=== PATIENT | female | born 1955 | race Caucasian/White ===

== ENCOUNTER → 2021-09-30 | Outpatient (CLI) | payer MEDICARE ==
--- NOTE | 2021-10-01 07:35 | CA ---
Transthoracic Echo Report Name: Alessandra Nieves Age: 65 Gender: F : 1955 Exam Date: 09/30/2021 11:57 Exam Location: [place] [facility] Ht (in): 69 Wt (lb): 200 Ordering Physician: Miranda Pederson MD Attending/Referring Phys: Kwabena Peralta Equipment Operator [employer] Fay Ambrocio RDCS Procedure CPT: Indications: R01.1 cardaic murmur Cardiac Hx: Technical Quality: Good Contrast 1: N/A Total Dose (mL): Contrast 2: Total Dose (mL): MEASUREMENTS (Male / Female) Normal Values 2D ECHO LV Diastolic Diameter PLAX 4.4 cm 4.2 - 5.9 / 3.9 - 5.3 cm LV Systolic Diameter PLAX 3.4 cm IVS Diastolic Thickness 1.5 cm 0.6 - 1.0 / 0.6 - 0.9 cm LVPW Diastolic Thickness 1.5 cm 0.6 - 1.0 / 0.6 - 0.9 cm LV Relative Wall Thickness 0.7 RV Internal Dim ED PLAX 3.2 cm LA Systolic Diameter LX 4.5 cm 3.0 - 4.0 / 2.7 - 3.8 cm LA Volume 76.6 cm??? 18 - 58 / 22 - 52 cm??? M-MODE Aortic Root Diameter MM 3.0 cm LA Systolic Diameter MM 4.1 cm LA Ao Ratio MM 1.4 MV E Point Septal Separation 0.5 cm AV Cusp Separation MM 1.5 cm DOPPLER MV Peak Velocity 152.3 cm/s MV Peak Gradient 9.3 mmHg MV Mean Velocity 53.9 cm/s MV Mean Gradient 1.8 mmHg MV Velocity Time Integral 36.3 cm MV Area PHT 4.3 cm??? Mitral E Point Velocity 113.6 cm/s Mitral A Point Velocity 100.0 cm/s Mitral E to A Ratio 1.1 MV Deceleration Time 175.9 ms MV E' Velocity 5.6 cm/s Mitral E to MV E' Ratio 20.1 TR Peak Velocity 311.3 cm/s TR Peak Gradient 38.8 mmHg Right Ventricular Systolic Press 42.0 mmHg FINDINGS Left Ventricle Moderately increased septal wall thickness.left ventricular ejection fraction is estimated at 50-55 %. Left ventricular cavity size normal. Right Ventricle Normal right ventricular size and function. Moderate pulmonary hypertension. Right Atrium Normal right atrial size. Left Atrium Moderately increased left atrial diameter. Severely increased left atrial volume. Mildly increased left atrial area. Mitral Valve Moderate mitral annular calcification of posterior leaflet. Aortic Valve Aortic valve not well visualized. Tricuspid Valve Mild tricuspid regurgitation. Pulmonic Valve Pulmonic valve not well visualized. Pericardium Normal pericardium. Aorta Normal size aortic root and proximal ascending aorta. CONCLUSIONS Mild left ventricle hypertrophy with ejection fraction of 55% Previewed by: Dr. Khai Molina MD (Electronically Signed) Final Date: 01 Oct 2021 07:35
== END | disposition home or self-care (01) ==
LOC: RADECHMAIN 11:37
PROVIDERS: ATTEND Family Medicine
DX: I51.7 Cardiomegaly (principal)
CPT/HCPCS: 93306

== ENCOUNTER → 2021-11-20 | Outpatient (CLI) | payer MEDICARE ==
--- NOTE | 2021-11-21 16:45 | MM ---
Reason for Exam: Screening (asymptomatic). Last mammogram was performed 13 year(s) and 1 month(s) ago. Patient History: Menarche at age 11. First Full-Term at age 25. Postmenopausal. Patient has history of breast feeding. Risk Values: Maddison 5 year model risk: 1.9%. NCI Lifetime model risk: 6.7%. Prior Study Comparison: 10/06/2008 Bilateral Screening Mammogram, [facility]. Tissue Density: There are scattered fibroglandular densities. Findings: Analyzed By CAD. There is a small nodule within the posterior mid middle position left breast. Short-term follow-up is recommended. No suspicious groups of microcalcifications, spiculated or lobular masses, architectural distortion or other secondary signs of malignancy are mammographically apparent. Overall Assessment: Probably benign, BI-RAD 3 Management: Diagnostic Mammogram of the left breast in 6 months. A negative mammogram report should not preclude additional follow up of suspicious palpable abnormalities. Patient should continue monthly self breast exam. A clinical breast exam by your physician is recommended on an annual basis and results should be correlated with mammographic findings. Electronically signed and approved by: Raul Willis D.O. Radiologis
== END | disposition home or self-care (01) ==
LOC: RADMAMWWP 12:58
PROVIDERS: ATTEND Family Medicine
DX: Z12.31 Encounter for screening mammogram for malignant neoplasm of breast (principal)
CPT/HCPCS: 77063; 77067

== ENCOUNTER → 2022-05-28 | Outpatient (CLI) | payer MEDICARE ==
--- NOTE | 2022-05-28 09:21 | MM ---
Reason for Exam: Follow-up at short interval from prior study. Last screening mammogram was performed 6 month(s) ago. Patient History: Menarche at age 11. First Full-Term at age 25. Postmenopausal. Patient has history of breast feeding. Risk Values: Maddison 5 year model risk: 1.9%. NCI Lifetime model risk: 6.4%. Prior Study Comparison: 10/06/2008 Bilateral Screening Mammogram, [facility]. 11/20/2021 Bilateral MG 3D screening mammo w/cad, [facility]. Tissue Density: Left: There are scattered fibroglandular densities. Findings: Analyzed By CAD. Focal asymmetry left breast 11-12 cm from nipple measuring 5 mm. This is unchanged from prior. New suspicious masses, calcifications or distortions. Overall Assessment: Incomplete: need additional imaging evaluation, BI-RAD 0 Management: Diagnostic Breast Ultrasound of the left breast. A clinical breast exam by your physician is recommended on an annual basis and results should be correlated with mammographic findings. This exam should not preclude additional follow-up of suspicious palpable abnormalities. Results were given to the patient verbally at the time of exam. Electronically signed and approved by: Yaron Mckeon DO
--- NOTE | 2022-05-28 09:58 | USB ---
Reason for Exam: Additional evaluation requested from prior study. Patient History: Menarche at age 11. First Full-Term at age 25. Postmenopausal. Patient has history of breast feeding. Risk Values: Maddison 5 year model risk: 1.9%. NCI Lifetime model risk: 6.4%. Technique: Method: Targeted. Prior Study Comparison: 10/06/2008 Bilateral Screening Mammogram, [facility]. 11/20/2021 Bilateral MG 3D screening mammo w/cad, [facility]. Findings: The upper section of the breast of the left breast was scanned. Left upper half of the breast. No ultrasound imaging to correlate with abnormality on mammography. No suspicious masses or organizing fluid collections. Overall Assessment: Probably benign, BI-RAD 3 Management: Screening Mammogram of both breasts in 6 months. Attention on follow-up regularly scheduled yearly screening mammogram in 6 months. A clinical breast exam by your physician is recommended on an annual basis and results should be correlated with mammographic findings. This exam should not preclude additional follow-up of suspicious palpable abnormalities. Results were given to the patient verbally at the time of exam. Electronically signed and approved by: Yaron Mckeon DO
== END | disposition home or self-care (01) ==
LOC: RADMAMWWP 08:55
PROVIDERS: ATTEND Family Medicine
DX: R92.8 Other abnormal and inconclusive findings on diagnostic imaging of breast (principal); Z78.0 Asymptomatic menopausal state
CPT/HCPCS: 77065; 76642; G0279; 77061

== ENCOUNTER → 2022-11-21 | Outpatient (CLI) | payer MEDICARE ==
--- NOTE | 2022-11-24 09:15 | MM ---
Reason for Exam: Screening (asymptomatic). Last screening mammogram was performed 12 month(s) ago. Patient History: Menarche at age 11. First Full-Term at age 25. Postmenopausal. Patient has history of breast feeding. Risk Values: Maddison 5 year model risk: 1.9%. NCI Lifetime model risk: 6.4%. Prior Study Comparison: 10/06/2008 Bilateral Screening Mammogram, [facility]. 11/20/2021 Bilateral MG 3D screening mammo w/cad, [facility]. 05/28/2022 Left MG 3D diag mammo w/cad LT, [facility]. Tissue Density: There are scattered fibroglandular densities. Findings: Analyzed By CAD. Pattern appears symmetrical and stable. No significant interval change is evident. Chronic nodularity within the posterior left breast is smaller than comparison. No suspicious groups of microcalcifications, spiculated or lobular masses, architectural distortion or other secondary signs of malignancy are mammographically apparent. Overall Assessment: Benign, BI-RAD 2 Management: Screening Mammogram of both breasts in 1 year. A negative mammogram report should not preclude additional follow up of suspicious palpable abnormalities. Patient should continue monthly self breast exam. A clinical breast exam by your physician is recommended on an annual basis and results should be correlated with mammographic findings. Electronically signed and approved by: Raul Willis D.O. Radiologis
== END | disposition home or self-care (01) ==
LOC: RADMAMWWP 09:00
PROVIDERS: ATTEND Family Medicine
DX: Z12.31 Encounter for screening mammogram for malignant neoplasm of breast (principal); Z78.0 Asymptomatic menopausal state
CPT/HCPCS: 77063; 77067

== ENCOUNTER → 2022-11-21 | Outpatient (CLI) | payer MEDICARE ==
--- NOTE | 2022-11-21 10:54 | CTL ---
EXAMINATION TYPE: CT Low Dose Lung DATE OF EXAM ORDERED: 11/21/2022 HISTORY: . Lung cancer screening CT DLP: 87.[address] CTDI: 2.3 mGy Automated exposure control for dose reduction was used. SCREENING VISIT: COMPARISON: TECHNIQUE: Low dose computed tomography scan was performed through the chest at 1 mm thick sections a nd reconstructed images in multiple planes at 1 mm and [address] DIAGNOSTIC QUALITY: Satisfactory FINDINGS: As a fat-containing abdominal wall hernia. There is hypertrophic and multilevel severe degenerative d isc disease of the spine. There is a large hiatal hernia. The heart is the upper limits of normal in size but there is dense coronary artery calcification. Richard cification near the aortic valve is seen. Aorta of normal caliber with mild atherosclerotic changes. There is no evidence of focal pneumonia, pleural effusion or pneumothorax. There is some biapical ple ural thickening. There is a nodular contour to the anterior margin of the mid left kidney only partially included fiel d-of-view. Mild changes of COPD. There is a 6 mm subpleural nodule left upper lobe. Linear density along the medial margin of the righ t lung apex likely related to scarring. Allograft assessment for adenopathy is limited by noncontrast technique. There is a prominent pretracheal lymph node measuring short axis VIII mm. No lymph nodes measuring greater than 1 cm in short axis identified. There is a 5 mm perivertebral lymph node right upper lobe axial image 92 There is a 4 mm left upper lobe nodule image 33 IMPRESSION: 1. There multiple small pulmonary nodules with the largest measuring 6 mm subpleural nodule left upp er lobe. Probably benign finding. Six-month follow-up recommended. 2. Dense coronary artery calcification. 3. Large hiatal hernia. 4. There is a nodular contour to the anterior margin of the left kidney. Recommend ultrasound of the left kidney to exclude mass. CT LUNG RAD AND CT CHEST RECOMMENDATION: Lung-Rad 3 Probably Benign: 6 month follow-up LDCT. S Modifier (other clinically significant findings): A Document Only message has been documented for Miranda Pederson MD in the [employer] Critical Result system on 11/21/2022 10:51 AM, Message ID [id number].
== END | disposition home or self-care (01) ==
LOC: RADCTMAIN 09:24
PROVIDERS: ATTEND Family Medicine
DX: Z12.2 Encounter for screening for malignant neoplasm of respiratory organs (principal); I25.10 Atherosclerotic heart disease of native coronary artery without angina pectoris; K44.9 Diaphragmatic hernia without obstruction or gangrene; R91.8 Other nonspecific abnormal finding of lung field; F17.210 Nicotine dependence, cigarettes, uncomplicated
CPT/HCPCS: 71271

== ENCOUNTER 2022-12-30 09:29 | Inpatient (IN) | payer MEDICARE ==
--- NOTE | 2022-12-30 09:47 | ED ---
Recheck HPI - General Chief Complaint: Recheck/Abnormal Lab/Rx Stated Complaint: kidney failure,sent by pcp Time Seen by Provider: 12/30/22 09:35 Source: patient, RN notes reviewed Mode of arrival: ambulatory Limitations: no limitations - History of Present Illness Initial Comments: This is a 67 year old female who presents to the emergency department for abnormal blood work. States that her PCP sent her in for poor kidney function demonstrated on her blood work obtained yesterday. She has had poor renal function over the last couple of months, and states that she has had ongoing diarrhea for the last 3 months, which is what caused her to go into kidney failure initially. States that she's had multiple tests done and they cannot figure out why she continues to have diarrhea or why her kidneys continue to fail. She is taking Lomotil, which she states has helped. She used to have diarrhea around 15-16 times a day and is now having it about 6 times a day when taking the Lomotil. Reports intermittent left flank pain over the last couple of weeks, but otherwise denies any concerns or complaints. Denies any fevers, chills, sore throat, cough, dyspnea, chest pain, palpitations, abdominal pain, nausea, vomiting, or headaches. MD Complaint: abnormal lab - Related Data Home Medications Medication Instructions Recorded Confirmed Albuterol Inhaler [Ventolin Hfa 1 - 2 puff INHALATION RT-Q6H PRN 12/11/22 12/30/22 Inhaler] Metoprolol Tartrate [Lopressor] 50 mg PO DAILY 12/11/22 12/30/22 Pantoprazole [Protonix] 40 - 80 mg PO DAILY 12/11/22 12/30/22 Cholecalciferol [Vitamin D3 (25 25 mcg PO DAILY 12/30/22 12/30/22 Mcg = 1000 Iu)] Diphenox-Atrop 2.5-0.025 mg 2 tab PO Q6HR PRN 12/30/22 12/30/22 [Lomotil] Mv-Min/Folic/Vit K/Lut/Pmwi057 1 tab PO DAILY 12/30/22 12/30/22 [Alive Women's 50 Plus Tablet] Rosuvastatin Calcium 5 mg PO HS 12/30/22 12/30/22 Ubidecarenone [Co Q-10] 300 mg PO DAILY 12/30/22 12/30/22 Previous Rx's Medication Instructions Recorded Potassium Chloride [K-Tab ER] 20 meq PO DAILY 30 Days #30 tab 12/19/22 lisinopriL [Zestril] 40 mg PO DAILY 30 Days #60 tab 12/19/22 Allergies Allergy/AdvReac Type Severity Reaction Status Date / Time Penicillins Allergy Swelling Verified 12/30/22 12:21 Review of Systems ROS Statement: Those systems with pertinent positive or pertinent negative responses have been documented in the HPI. ROS Other: All systems not noted in ROS Statement are negative. Past Medical History Past Medical History: Hyperlipidemia, Hypertension, Renal Disease History of Any Multi-Drug Resistant Organisms: None Reported Past Surgical History: Section, Hernia Repair Past Anesthesia/Blood Transfusion Reactions: No Reported Reaction Past Psychological History: No Psychological Hx Reported Smoking Status: Current every day smoker Past Alcohol Use History: None Reported Past Drug Use History: None Reported General Exam Limitations: no limitations General appearance: alert, in no apparent distress Head exam: Present: atraumatic, normocephalic, normal inspection Respiratory exam: Present: normal lung sounds bilaterally. Absent: respiratory distress, wheezes, rales, rhonchi, stridor Cardiovascular Exam: Present: regular rate, normal rhythm, normal heart sounds. Absent: systolic murmur, diastolic murmur, rubs, gallop, clicks GI/Abdominal exam: Present: soft, normal bowel sounds. Absent: distended, tenderness, guarding, rebound, rigid Back exam: Absent: CVA tenderness (R), CVA tenderness (L) Neurological exam: Present: alert, oriented X3, CN II-XII intact Psychiatric exam: Present: normal affect, normal mood Skin exam: Present: warm, dry, intact, normal color. Absent: rash Course Vital Signs 12/30/22 12/30/22 12/30/22 09:31 11:30 12:23 Temperature 98 F Pulse Rate 79 51 L 52 L Respiratory 16 18 18 Rate Blood Pressure 90/57 91/49 95/68 O2 Sat by Pulse 98 98 100 Oximetry 12/30/22 13:06 Temperature Pulse Rate 54 L Respiratory 18 Rate Blood Pressure 93/50 O2 Sat by Pulse 97 Oximetry Medical Decision Making - Medical Decision Making This is a 67-year-old female who presents to the emergency department per the instruction of her primary care provider for poor renal function demonstrated on recent blood work. Was pt. sent in by a medical professional or institution? @ -Yes, her PCP Did you speak to anyone other than the patient for history? @ -No Did you review nursing and triage notes? @ -Yes, and I agree, it is accurate with regards to the patient's symptoms. Were old charts reviewed? @ -No Differential Diagnosis? @ -Differential Renal Failure: Hypovolemia, hypotension, renal artery disease, tubular disease, autoimmune disease, this is not meant to be an all-inclusive list. EKG interpreted by me (3pts min.)? @ -EKG interpreted by me demonstrating the following: Sinus bradycardia. Ventricular rate 49 beats per minute, FL interval 158 ms, QRS duration 98 ms, QTC 381 ms. X-rays interpreted by me (1pt min.)? @ -Chest x-ray obtained, my interpretation identifies no localized consolidations or infiltrates. CT interpreted by me (1pt min.)? @ -Not obtained U/S interpreted by me (1pt. min.)? @ -Not obtained What testing was considered but not performed? (CT, X-rays, U/S, labs)? Why? @ -None What meds were considered but not given? Why? @ -None Did you discuss the management of the patient with other professionals? @ -Yes, Dr. Beckett, who accepts the patient for admission. Did you reconcile home meds? @ -No Was smoking cessation discussed for >3mins.? @ -No Was critical care preformed (if so, how long)? @ -No Were there social determinants of health that impacted care today? How? (Homelessness, low income, unemployed, alcoholism, drug addiction, transportation, low edu. Level, literacy, decrease access to med. care, mcc, rehab)? @ -No Was there de-escalation of care discussed even if they declined? (Discuss DNR or withdrawal of care, Hospice)? @ -No What co-morbidities impacted this encounter? (DM, HTN, Smoking, COPD, CAD, Cancer, CVA, Hep., AIDS, mental health diagnosis, sleep apnea, morbid obesity)? @ -HLD, HTN, renal disease Was patient admitted / discharged? @ -Admitted. Lab work obtained revealing poor renal function that has worsened even when compared with one day ago. Magnesium is also critically low at 0.9. Chest x-ray obtained revealing no acute process. Urinalysis negative for signs of infection. Patient did remain fairly hypotensive in the emergency department, with blood pressures ranging from 85 to 95 systolically for most of the visit. She was subsequently given a liter bolus of IV fluids. 4g of magne sium oxide administered for the hypomagnesemia. She did take her medication for hypertension this morning. She does not check her BP at home. Patient admitted to medicine for hypomagnesemia and hypotension. Nephrology listed as consult. Undiagnosed new problem with uncertain prognosis? @ -None Drug Therapy requiring intensive monitoring for toxicity (Heparin, Nitro, Insulin, Cardizem)? @ -None Were any procedures done? @ -None Diagnosis/symptom? @ -Hypomagnesemia, hypotension Acute, or Chronic, or Acute on Chronic? @ -Acute Uncomplicated (without systemic symptoms) or Complicated (systemic symptoms)? @ -Complicated Side effects of treatment? @ -None Exacerbation, Progression, or Severe Exacerbation] @ -Not applicable Poses a threat to life or bodily function? @ -Yes This case was discussed in detail with the attending ED physician, Dr. Gao. Presentation, findings, and treatment plan discussed in detail as well. - Lab Data Result diagrams: 12/30/22 10:38 12/30/22 10:38 Lab Results 12/30/22 12/30/22 12/30/22 Range/Units 10:38 10:38 10:38 WBC 7.0 (3.8-10.6) k/uL RBC 4.25 (3.80-5.40) m/uL Hgb 13.8 (11.4-16.0) gm/dL Hct 42.0 (34.0-46.0) % MCV 98.7 (80.0-100.0) fL MCH 32.5 (25.0-35.0) pg MCHC 32.9 (31.0-37.0) g/dL RDW 12.5 (11.5-15.5) % Plt Count 273 (150-450) k/uL MPV 9.5 Neutrophils % 51 % Lymphocytes % 38 % Monocytes % 7 % Eosinophils % 3 % Basophils % 0 % Neutrophils # 3.5 (1.3-7.7) k/uL Lymphocytes # 2.7 (1.0-4.8) k/uL Monocytes # 0.5 (0-1.0) k/uL Eosinophils # 0.2 (0-0.7) k/uL Basophils # 0.0 (0-0.2) k/uL Sodium 136 L (137-145) mmol/L Potassium 4.8 (3.5-5.1) mmol/L Chloride 104 (98-107) mmol/L Carbon Dioxide 20 L (22-30) mmol/L Anion Gap 12 mmol/L BUN 43 H (7-17) mg/dL Creatinine 3.92 H (0.52-1.04) mg/dL Est GFR (CKD-EPI)AfAm 13 (>60 ml/min/1.73 sqM) Est GFR (CKD-EPI)NonAf 11 (>60 ml/min/1.73 sqM) Glucose 95 (74-99) mg/dL Calcium 9.4 (8.4-10.2) mg/dL Phosphorus 5.7 H (2.5-4.5) mg/dL Magnesium 0.9 L* (1.6-2.3) mg/dL Total Bilirubin 0.7 (0.2-1.3) mg/dL AST 35 (14-36) U/L ALT 50 H (4-34) U/L Alkaline Phosphatase 58 (38-126) U/L Total Protein 7.3 (6.3-8.2) g/dL Albumin 3.9 (3.5-5.0) g/dL Urine Color Yellow Urine Appearance Clear (Clear) Urine pH 5.0 (5.0-8.0) Ur Specific [place] 1.011 (1.001-1.035) Urine Protein Trace H (Negative) Urine Glucose (UA) Negative (Negative) Urine Ketones Negative (Negative) Urine Blood Negative (Negative) Urine Nitrite Negative (Negative) Urine Bilirubin Negative (Negative) Urine Urobilinogen <2.0 (<2.0) mg/dL Ur Leukocyte Esterase Negative (Negative) - Radiology Data Radiology results: report reviewed, image reviewed Disposition Clinical Impression: Hypomagnesemia, Hypotension Disposition: ADMITTED IP TO THIS HOSP
[2022-12-30 10:59] LABS: Basophils % (A) 0 %; Eosinophils # (A) 0.2 k/uL (0-0.7); Eosinophils % (A) 3 %; HGB 13.8 gm/dL (11.4-16.0); Lymphocytes # (A) 2.7 k/uL (1.0-4.8); Lymphocytes % (A) 38 %; MCH 32.5 pg (25.0-35.0); MCHC 32.9 g/dL (31.0-37.0); MCV 98.7 fL (80.0-100.0); Mean Platelet Volume 9.5; Monocytes # (A) 0.5 k/uL (0-1.0); Monocytes % (A) 7 %; Neutrophils # (A) 3.5 k/uL (1.3-7.7); Neutrophils % (A) 51 %; Platelet Count 273 k/uL (150-450); RBC 4.25 m/uL (3.80-5.40); RDW 12.5 % (11.5-15.5)
[2022-12-30 11:22] LABS: ALT 50 U/L (4-34); African American GFR (CKD) 13 (>60 ml/min/1.73 sqM); Anion Gap 12 mmol/L; Blood Urea Nitrogen 43 mg/dL (7-17); Calcium 9.4 mg/dL (8.4-10.2); Carbon Dioxide 20 mmol/L (22-30); Chloride 104 mmol/L (98-107); Glucose 95 mg/dL (74-99); Non-African American GFR(CKD) 11 (>60 ml/min/1.73 sqM); Sodium 136 mmol/L (137-145); Total Bilirubin 0.7 mg/dL (0.2-1.3)
[2022-12-30] MEDS ORDERED: SODIUM CHLORIDE 0.9% 1,000 ML IV STA (11:23)
[2022-12-30 11:29] LABS: Magnesium 0.9 mg/dL (1.6-2.3); Potassium 4.8 mmol/L (3.5-5.1)
[2022-12-30 11:30] LABS: AST 35 U/L (14-36); Albumin 3.9 g/dL (3.5-5.0); Alkaline Phosphatase 58 U/L (38-126); Phosphorus 5.7 mg/dL (2.5-4.5); Total Protein 7.3 g/dL (6.3-8.2)
[2022-12-30] MEDS: MAGNESIUM SULFATE-D5W PMX 1 GM in DEXTROSE/WATER 1 100ML.BAG IVPB SCH ×4 (11:42→16:17)
[2022-12-30] MEDS ORDERED: ACETAMINOPHEN TAB 325 MG TAB PO PRN (12:00)
[2022-12-30] MEDS ORDERED: NALOXONE 0.4 MG/ML 1 ML VIAL IV PRN (12:00)
[2022-12-30] MEDS ORDERED: ONDANSETRON 4 MG/2 ML VIAL IVP PRN (12:00)
[2022-12-30] MEDS ORDERED: HYDROcodone/APAP 5-325MG 1 EACH TAB PO PRN (12:00)
--- NOTE | 2022-12-30 12:10 | XR ---
EXAMINATION TYPE: XR chest 2V DATE OF EXAM: 12/30/2022 COMPARISON: 12/11/2022 HISTORY: 67-year-old female weakness and hypotension TECHNIQUE: PA and lateral views FINDINGS: Heart normal size. Aorta and pulmonary vasculature within normal limits. Mild hyperinflation. There i s a small hiatal hernia. Surgical clips upper abdomen. No consolidation or pleural effusion. IMPRESSION: Mild hyperinflation may relate to depth of inspiration or underlying emphysema. Small hiatal hernia. No acute process seen.
[2022-12-30 13:20] LABS: Appearance,Urine Clear (Clear); Bilirubin,Urine Negative (Negative); Blood,Urine Negative (Negative); Color,Urine Yellow; Glucose,Urine (UA) Negative (Negative); Ketones,Urine Negative (Negative); Leukocyte Esterase,Urine Negative (Negative); Nitrite,Urine Negative (Negative); Protein,Urine Trace (Negative); Specific Gravity,Urine 1.011 (1.001-1.035); Urobilinogen,Urine <2.0 mg/dL (<2.0)
[2022-12-30] MEDS: NICOTINE 21MG/24HR PATCH TRANSDERM SCH (16:17)
[2022-12-30] MEDS ORDERED: ALBUTEROL NEBULIZED 2.5 MG/3 ML INHALATION PRN (17:40)
[2022-12-30] MEDS: ATORVASTATIN 10 MG TAB PO SCH (21:34)
[2022-12-31] MEDS: NON FORMULARY DRUG (Ubidecarenone [Co Q-10] 300 MG Capsule) PO SCH ×2 (01:35→08:47)
[2022-12-31] MEDS: CHOLECALCIFEROL 25 MCG (1000 IU) TABLET PO SCH (08:47)
[2022-12-31] MEDS: MULTIVITAMINS, THERA 1 EACH TAB PO SCH (08:47)
[2022-12-31] MEDS: PANTOPRAZOLE 40 MG TABLET PO SCH (08:47)
[2022-12-31] MEDS: POTASSIUM CHLORIDE ER 20 MEQ TAB.ER PO SCH (08:47)
[2022-12-31] MEDS: lisinopriL 20 MG TAB PO SCH (08:48)
[2022-12-31] MEDS: METOPROLOL TARTRATE 50 MG TAB PO SCH (08:48)
[2022-12-31] MEDS: NICOTINE 21MG/24HR PATCH TRANSDERM SCH (08:48)
[2022-12-31] MEDS ORDERED: SODIUM CHLORIDE 0.9% 1,000 ML IV STA (10:45)
--- NOTE | 2022-12-31 10:49 | P.HPIM ---
History of Present Illness H&P Date: 12/31/22 Chief Complaint: Diarrhea abnormal labs This is a 67-year-old female patient of Dr. Pederson who presented with concerns of abnormal labs and increased diarrhea. Patient reports that diarrhea did improve with the Lomotil that she was discharged on. But diarrhea started to in crease over the past week. Patient denies any recent illness or change in diet. Patient has a past medical history of hyperlipidemia hypertension and nicotine dependence. Patient was recently admitted and treated for acute renal failure secondary to diarrhea. During that stay patient underwent colonoscopy with Dr. Nogueira and was given IV fluid and nephrology services evaluation. Kidney enzymes did return baseline. Upon arrival patient was found to have a creatinine of 3.92 and magnesium 0.9. White blood cell within normal limits at 7.0. Chest x-ray completed showing mild hyperinflation pain related to depth of inspiration underlying emphysema small hiatal hernia and no acute process seen. EKG completed showing sinus bradycardia. Current vital signs temp 98.2, heart rate 62, respiratory rate 15, blood pressure 95/57 with pulse ox 97% on room air at this time patient has been started on IV fluid nephrology and GI services consulted . Review of Systems please refer to HPI otherwise unremarkable Past Medical History Past Medical History: Hyperlipidemia, Hypertension, Renal Disease History of Any Multi-Drug Resistant Organisms: None Reported Past Surgical History: Section, Hernia Repair Past Anesthesia/Blood Transfusion Reactions: No Reported Reaction Past Psychological History: No Psychological Hx Reported Smoking Status: Current every day smoker Past Alcohol Use History: None Reported Past Drug Use History: None Reported Medications and Allergies Home Medications Medication Instructions Recorded Confirmed Type RX: Albuterol Inhaler [Ventolin 1 - 2 puff INHALATION RT-Q6H PRN 12/11/22 12/30/22 History Hfa Inhaler] RX: Metoprolol Tartrate [Lopressor] 50 mg PO DAILY 12/11/22 12/30/22 History RX: Pantoprazole [Protonix] 40 - 80 mg PO DAILY 12/11/22 12/30/22 History RX: Potassium Chloride [K-Tab ER] 20 meq PO DAILY 30 Days #30 tab 12/19/22 12/30/22 Rx RX: lisinopriL [Zestril] 40 mg PO DAILY 30 Days #60 tab 12/19/22 12/30/22 Rx Cholecalciferol [Vitamin D3 (25 25 mcg PO DAILY 12/30/22 12/30/22 History Mcg = 1000 Iu)] Mv-Min/Folic/Vit K/Lut/[id number] 1 tab PO DAILY 12/30/22 12/30/22 History [Alive Women's 50 Plus Tablet] RX: Diphenox-Atrop 2.5-0.025 mg 2 tab PO Q6HR PRN 12/30/22 12/30/22 History [Lomotil] RX: Rosuvastatin Calcium 5 mg PO HS 12/30/22 12/30/22 History Ubidecarenone [Co Q-10] 300 mg PO DAILY 12/30/22 12/30/22 History Allergies Allergy/AdvReac Type Severity Reaction Status Date / Time Penicillins Allergy Swelling Verified 12/30/22 12:21 Physical Exam Vitals: Vital Signs Temp Pulse Pulse Resp BP BP Pulse Ox 12/31/22 06:57 98.2 F 62 15 95/57 97 12/31/22 02:00 97.8 F 63 16 115/67 97 12/30/22 20:00 98.2 F 61 16 127/49 97 12/30/22 17:40 98.2 F 57 L 14 113/58 96 12/30/22 13:06 54 L 18 93/50 97 12/30/22 12:23 52 L 18 95/68 100 12/30/22 11:30 51 L 18 91/49 98 Intake and Output 12/30/22 12/31/22 12/31/22 22:59 06:59 14:59 Intake Total 740 Balance 740 Intake: Oral 740 Other: Voiding Method Toilet # Voids 2 2 # Bowel Movements 2 Weight 76.657 kg Head normocephalic Neck supple Lungs clear to auscultation bilaterally no wheezing or crackles Heart regular rate and rhythm S1-S2, no rub or gallop Abdomen is soft nontender nondistended positive bowel sounds no hepatospl enomegaly Extremities no edema Neuro alert and orientated to 3 Results CBC & Chem 7: 12/30/22 10:38 12/30/22 10:38 Labs: Abnormal Lab Results - Last 24 Hours (Table) 12/30/22 12/30/22 Range/Units 10:38 10:38 Sodium 136 L (137-145) mmol/L Carbon Dioxide 20 L (22-30) mmol/L BUN 43 H (7-17) mg/dL Creatinine 3.92 H (0.52-1.04) mg/dL Phosphorus 5.7 H (2.5-4.5) mg/dL Magnesium 0.9 L* (1.6-2.3) mg/dL ALT 50 H (4-34) U/L Urine Protein Trace H (Negative) Thrombosis Risk Factor Assmnt - Choose All That Apply Each Factor Represents 1 point: Obesity (BMI >25) Each Risk Factor Represents 2 Points: Age 61-74 years Thrombosis Risk Factor Assessment Total Risk Factor Score: 3 Thrombosis Risk Factor Assessment Level: Moderate Risk Assessment and Plan Assessment: 1. Acute renal failure. Continue IV fluid nephrology service is consulted 2. Diarrhea. Patient was recently evaluated by GI services and underwent colonoscopy. GI services will be consulted again 3. Hypomagnesemia replacement protocol ordered repeat labs ordered 4. History of hyperlipidemia 5. History of nicotine dependence 6. History of essential hypertension DVT prophylaxis Lovenox. GI prophylaxis Protonix Nephrology and GI service is consulted Stool culture and stool for C. diff ordered Repeat labs ordered
[2022-12-31 11:55] LABS: Basophils # (A) 0.02 X 10*3/uL (0.00-0.10); Basophils % (A) 0.4 %; Eosinophils # (A) 0.34 X 10*3/uL (0.04-0.35); Eosinophils % (A) 6.3 %; HCT 36.4 % (37.2-46.3); HGB 12.1 d/dL (12.0-15.0); Lymphocytes % (A) 40.4 %; MCHC 33.2 d/dL (32.0-37.0); MCV 96.3 FL (80.0-97.0); Mean Platelet Volume 12.2 FL (9.5-12.2); NRBC Per 100 WBC 0 X 10*3/uL (0.00-0.01); Neutrophils # (A) 2.25 X 10*3/uL (1.80-7.70); Neutrophils % (A) 41.3 %; Platelet Count 277 X 10*3/uL (140-440); RBC 3.78 X 10*6/uL (4.10-5.20); RDW 12.4 % (11.5-14.5); WBC 5.44 X 10*3/uL (4.50-10.00)
[2022-12-31 12:18] LABS: ALT 48 U/L (8-44); AST 25 U/L (13-35); Albumin 3.6 d/dL (3.8-4.9); Alkaline Phosphatase 67 U/L (41-126); Blood Urea Nitrogen 33.6 mg/dL (9.0-27.0); Calcium 9.8 mg/dL (8.7-10.3); Carbon Dioxide 18.6 mmol/L (21.6-31.8); Chloride 108 mmol/L (96-109); Globulin 2.4 d/dL (1.6-3.3); Glucose 99 mg/dL (70-110); Magnesium 2.1 mg/dL (1.5-2.4); Potassium 4.1 mmol/L (3.5-5.5); Sodium 139 mmol/L (135-145); Total Bilirubin 0.2 mg/dL (0.3-1.2)
--- NOTE | 2022-12-31 13:33 | P.NPCON ---
History of Present Illness - Reason for Consult acute renal failure - History of Present Illness Patient is a 67-year-old female who has a history of chronic diarrhea. Patient was recently discharged from the hospital after being admitted for volume depletion and acute kidney injury and significant diarrhea. Serum creatinine had improved to 0.9 mg/dL from 12.5 on initial admission. Patient received IV fluids. She is admitted again with complaints of increased diarrhea and weakness. Patient is maintained on lisinopril as outpatient. Blood pressure was low with systolic in the low 90s. Serum creatinine was elevated at 3.9 this admission and decreased to 2.1 today. Magnesium was low at 0.9 mg/dL. Patient has been voiding. Review of Systems As per HPI. Past Medical History Past Medical History: Hyperlipidemia, Hypertension, Renal Disease History of Any Multi-Drug Resistant Organisms: None Reported Past Surgical History: Section, Hernia Repair Past Anesthesia/Blood Transfusion Reactions: No Reported Reaction Past Psychological History: No Psychological Hx Reported Smoking Status: Current every day smoker Past Alcohol Use History: None Reported Past Drug Use History: None Reported Medications and Allergies Home Medications Medication Instructions Recorded Confirmed Type Albuterol Inhaler [Ventolin Hfa 1 - 2 puff INHALATION RT-Q6H PRN 12/11/22 12/30/22 History Inhaler] Metoprolol Tartrate [Lopressor] 50 mg PO DAILY 12/11/22 12/30/22 History Pantoprazole [Protonix] 40 - 80 mg PO DAILY 12/11/22 12/30/22 History Potassium Chloride [K-Tab ER] 20 meq PO DAILY 30 Days #30 tab 12/19/22 12/30/22 Rx lisinopriL [Zestril] 40 mg PO DAILY 30 Days #60 tab 12/19/22 12/30/22 Rx Cholecalciferol [Vitamin D3 (25 25 mcg PO DAILY 12/30/22 12/30/22 History Mcg = 1000 Iu)] Diphenox-Atrop 2.5-0.025 mg 2 tab PO Q6HR PRN 12/30/22 12/30/22 History [Lomotil] Mv-Min/Folic/Vit K/Lut/[id number] 1 tab PO DAILY 12/30/22 12/30/22 History [Alive Women's 50 Plus Tablet] Rosuvastatin Calcium 5 mg PO HS 12/30/22 12/30/22 History Ubidecarenone [Co Q-10] 300 mg PO DAILY 12/30/22 12/30/22 History Allergies Allergy/AdvReac Type Severity Reaction Status Date / Time Penicillins Allergy Swelling Verified 12/30/22 12:21 Physical Exam Vitals: Vital Signs Temp Pulse Pulse Resp BP BP Pulse Ox 12/31/22 06:57 98.2 F 62 15 95/57 97 12/31/22 02:00 97.8 F 63 16 115/67 97 12/30/22 20:00 98.2 F 61 16 127/49 97 12/30/22 17:40 98.2 F 57 L 14 113/58 96 Intake and Output 12/30/22 12/31/22 12/31/22 22:59 06:59 14:59 Intake Total 740 Balance 740 Intake: Oral 740 Other: Voiding Method Toilet # Voids 2 2 # Bowel Movements 2 Weight 76.657 kg Patient is awake, comfortable, no acute distress Alert oriented 3 Examination of the heart S1 and S2 Examination of the lungs bilateral breath sounds are heard Abdomen is soft nontender Examination of lower extremities shows no evidence of edema MATERIALS HANDLING COORDINATOR exam grossly intact Results - Lab Results Most recent lab results Calcium 9.8 mg/dL (8.7-10.3) 12/31/22 06:38 Phosphorus 5.7 mg/dL (2.5-4.5) H 12/30/22 10:38 Magnesium 2.1 mg/dL (1.5-2.4) 12/31/22 06:38 12/31/22 06:38 12/31/22 06:38 Assessment and Plan Assessment: 1. Acute kidney injury secondary to hemodynamic ATN from hypotension and volume depletion in the setting of use of MARISELA inhibitor's. Currently nonoliguric and improving. 2. Volume depletion 3. Hypotension from hypovolemia 4. Hypomagnesemia from GI fluid loss from diarrhea 5. History of acute kidney injury with serum creatinine as high as 12.5 during her last admission on 12/12/2022. This had resolved with serum creatinine down to 0.8 mg/dL on 12/17/2022. 6. History of hypertension maintained on MARISELA inhibitor's as outpatient. Plan: Aggressive IV hydration. Switch to Ringer lactate due to mild metabolic acidosis Patient will need to hold lisinopril upon discharge and she can be maintained on calcium channel blockers instead of MARISELA inhibitor's given the frequent episodes of hypotension and acute kidney injury. Maintain magnesium supplementation post discharge Repeat labs in a.m. Thank you for the consultation. We will continue to follow the patient with you during her hospitalization
[2022-12-31] MEDS: predniSONE 10 MG TAB PO SCH (14:17)
[2022-12-31] MEDS: DIPHENOX-ATROP 2.5-0.025 MG 1 EACH TAB PO PRN ×2 (14:17→20:22)
[2022-12-31] MEDS: LACTATED RINGERS 1,000 ML IV SCH (14:18)
--- NOTE | 2022-12-31 16:45 | P.CONS ---
History of Present Illness - Reason for Consult Consult date: 12/31/22 Diarrhea Requesting physician: Virgie Beckett - Chief Complaint Abnormal labs - History of Present Illness This pleasant 59-year-old female who was recently hospitalized and seen by gastroenterology for chronic diarrhea. During that time she had a colonoscopy done on 06/19/2022 and examined colon polyps status post polypectomy, otherwise normal-appearing colon. Multiple biopsies were collected. Biopsy results show ascending colon transverse and descending colon with collagenous colitis. Patient states that her diarrhea has improved since the last time she was admit osmani to the hospital however she still having about 8 a day. She states that they were more brown but now they're turning a little more green again. She has been taking Lomotil 2 tablets every 4 hours at home as needed. Denies any nausea or vomiting, no abdominal pain, but she states that she was told her magnesium level was low and her kidney functions were abnormal and was told to come to the emergency department. Patient is afebrile. Labs WBC 5.4 hemoglobin 12 hematocrit 36 platelet count 277,000 sodium 139 potassium 4.1 BUN 33 creatinine 2.1 magnesium on admission 0.9 repeat 2.1 total bilirubin 0.2 AST 25 ALT 48 alkaline phosphatase 67 stool C. diff negative Review of Systems REVIEW OF SYSTEMS: CARDIOPULMONARY: No chest pain or shortness of breath. Gastrointestinal: No abdominal pain. No nausea or vomiting. No hematemesis, coffee-ground emesis. No rectal bleeding, or melena. Nonbloody diarrhea, up to 8 times daily. Green in color. GENITOURINARY: No dysuria or hematuria. MUSCULOSKELETAL: Reports normal range of motion. SKIN: No rashes. No jaundice. ENDOCRINE: No chills, fevers. No excessive weight gain or loss. No polydipsia or polyuria. PSYCHIATRIC: Unremarkable. NEUROLOGY: No change in mental status. Denies dizziness, headache. ENT: Vision unremarkable. CONSTITUTIONAL: No recent weight loss. No fever, chills, night sweats. Past Medical History Past Medical History: Hyperlipidemia, Hypertension, Renal Disease History of Any Multi-Drug Resistant Organisms: None Reported Past Surgical History: Section, Hernia Repair Past Anesthesia/Blood Transfusion Reactions: No Reported Reaction Past Psychological History: No Psychological Hx Reported Smoking Status: Current every day smoker Past Alcohol Use History: None Reported Past Drug Use History: None Reported Medications and Allergies Home Medications Medication Instructions Recorded Confirmed Type Albuterol Inhaler [Ventolin Hfa 1 - 2 puff INHALATION RT-Q6H PRN 12/11/22 12/30/22 History Inhaler] Metoprolol Tartrate [Lopressor] 50 mg PO DAILY 12/11/22 12/30/22 History Pantoprazole [Protonix] 40 - 80 mg PO DAILY 12/11/22 12/30/22 History Potassium Chloride [K-Tab ER] 20 meq PO DAILY 30 Days #30 tab 12/19/22 12/30/22 Rx lisinopriL [Zestril] 40 mg PO DAILY 30 Days #60 tab 12/19/22 12/30/22 Rx Cholecalciferol [Vitamin D3 (25 25 mcg PO DAILY 12/30/22 12/30/22 History Mcg = 1000 Iu)] Diphenox-Atrop 2.5-0.025 mg 2 tab PO Q6HR PRN 12/30/22 12/30/22 History [Lomotil] Mv-Min/Folic/Vit K/Lut/[id number] 1 tab PO DAILY 12/30/22 12/30/22 History [Alive Women's 50 Plus Tablet] Rosuvastatin Calcium 5 mg PO HS 12/30/22 12/30/22 History Ubidecarenone [Co Q-10] 300 mg PO DAILY 12/30/22 12/30/22 History Allergies Allergy/AdvReac Type Severity Reaction Status Date / Time Penicillins Allergy Swelling Verified 12/30/22 12:21 Physical Exam Vitals: Vital Signs Temp Pulse Pulse Resp BP BP Pulse Ox 12/31/22 06:57 98.2 F 62 15 95/57 97 12/31/22 02:00 97.8 F 63 16 115/67 97 12/30/22 20:00 98.2 F 61 16 127/49 97 12/30/22 17:40 98.2 F 57 L 14 113/58 96 12/30/22 13:06 54 L 18 93/50 97 12/30/22 12:23 52 L 18 95/68 100 12/30/22 11:30 51 L 18 91/49 98 Intake and Output 12/30/22 12/31/22 12/31/22 22:59 06:59 14:59 Intake Total 740 Balance 740 Intake: Oral 740 Other: Voiding Method Toilet # Voids 2 2 # Bowel Movements 2 Weight 76.657 kg General appearance: The patient is alert, oriented, appears in no acute distress. HET: Head is normocephalic and atraumatic. Conjunctiva pink. Sclera anicteric. Neck: Supple without lymphadenopathy. Trachea midline. Heart: S1 S2. Regular rate and rhythm. Lungs: Clear to auscultation. Abdomen: Soft, nontender, nondistended with bowel sounds. No guarding or rigidity. Skin: No rashes. No jaundice. Extremities: Normal skin color and turgor. No pedal edema. Neurological: No focal deficits. Alert and oriented x3. Results CBC & Chem 7: 12/31/22 06:38 12/31/22 06:38 Labs: Abnormal Lab Results - Last 24 Hours (Table) 12/30/22 12/30/22 Range/Units 10:38 10:38 Sodium 136 L (137-145) mmol/L Carbon Dioxide 20 L (22-30) mmol/L BUN 43 H (7-17) mg/dL Creatinine 3.92 H (0.52-1.04) mg/dL Phosphorus 5.7 H (2.5-4.5) mg/dL Magnesium 0.9 L* (1.6-2.3) mg/dL ALT 50 H (4-34) U/L Urine Protein Trace H (Negative) Assessment and Plan (1) Collagenous colitis Narrative/Plan: 67-year-old female with chronic diarrhea presented for abnormal labs. Patient was recently hospitalized for ongoing diarrhea over last several months. She had a colonoscopy done during her last admission 12/17/2022 showing collagenous colitis. Discussed with patient that this can be common in elderly and is treated generally with steroids. Recommend budesonide however not available in this hospital. Will start patient on prednisone 30 mg daily and taper by 10 mg weekly. Continue with Lomotil 2 tablets every 4 hours as needed. Current Visit: Yes Status: Acute Code(s): K52.831 - COLLAGENOUS COLITIS SNOMED Code(s): 65667540 (2) Diarrhea Current Visit: No Status: Acute Code(s): R19.7 - DIARRHEA, UNSPECIFIED SNO MED Code(s): 81709068 (3) Hypomagnesemia Current Visit: Yes Status: Acute Code(s): E83.42 - HYPOMAGNESEMIA SNOMED Code(s): 621176955 (4) Acute renal failure (ARF) Current Visit: No Status: Acute Code(s): N17.9 - ACUTE KIDNEY FAILURE, UNSPECIFIED SNOMED Code(s): 49991857 Plan: 1. Continue symptomatic and supportive care 2. Diet as tolerated 3. Lomotil 2 tablets every 4 hours as needed 4. Start prednisone 30 mg daily, taper by 10 mg weekly 5. Follow-up in the office of gastroenterology in 2-3 weeks 6. Replace magnesium per protocol Thank you for this consultation, we will continue to follow. Dr. Suhail Moon I agree with the dictator's note, documented as a scribe by Tierney Temple.
[2022-12-31] MEDS: ATORVASTATIN 10 MG TAB PO SCH (19:36)
[2023-01-01] MEDS: LACTATED RINGERS 1,000 ML IV SCH ×2 (00:16→08:09)
[2023-01-01 07:34] VITALS: PULSE 68; RESP 18
[2023-01-01] MEDS: NON FORMULARY DRUG (Ubidecarenone [Co Q-10] 300 MG Capsule) PO SCH (07:58)
[2023-01-01] MEDS: lisinopriL 20 MG TAB PO SCH (08:01)
[2023-01-01] MEDS: predniSONE 10 MG TAB PO SCH (08:07)
[2023-01-01] MEDS: ATORVASTATIN 10 MG TAB PO SCH (08:07)
[2023-01-01] MEDS: NICOTINE 21MG/24HR PATCH TRANSDERM SCH (08:07)
[2023-01-01] MEDS: PANTOPRAZOLE 40 MG TABLET PO SCH (08:07)
[2023-01-01] MEDS: CHOLECALCIFEROL 25 MCG (1000 IU) TABLET PO SCH (08:07)
[2023-01-01] MEDS: POTASSIUM CHLORIDE ER 20 MEQ TAB.ER PO SCH (08:07)
[2023-01-01] MEDS: METOPROLOL TARTRATE 50 MG TAB PO SCH (08:07)
[2023-01-01] MEDS: MULTIVITAMINS, THERA 1 EACH TAB PO SCH (08:07)
[2023-01-01 08:38] LABS: Basophils # (A) 0.02 X 10*3/uL (0.00-0.10); Basophils % (A) 0.3 %; Eosinophils # (A) 0.03 X 10*3/uL (0.04-0.35); Eosinophils % (A) 0.4 %; HCT 34.9 % (37.2-46.3); HGB 11.5 d/dL (12.0-15.0); Lymphocytes # (A) 1.91 X 10*3/uL (0.90-5.00); Lymphocytes % (A) 27.4 %; MCH 31.6 pg (27.0-32.0); MCV 95.9 FL (80.0-97.0); Monocytes # (A) 0.62 X 10*3/uL (0.20-1.00); Monocytes % (A) 8.9 %; NRBC Per 100 WBC 0 X 10*3/uL (0.00-0.01); Neutrophils # (A) 4.35 X 10*3/uL (1.80-7.70); Neutrophils % (A) 62.6 %; Platelet Count 262 X 10*3/uL (140-440); RBC 3.64 X 10*6/uL (4.10-5.20); RDW 12.2 % (11.5-14.5); WBC 6.96 X 10*3/uL (4.50-10.00)
[2023-01-01 09:00] LABS: ALT 42 U/L (8-44); AST 22 U/L (13-35); Albumin 3.8 d/dL (3.8-4.9); Albumin/Globulin Ratio 1.52 Ratio (1.60-3.17); Alkaline Phosphatase 67 U/L (41-126); BUN/Creat Ratio 20.92 Ratio (12.00-20.00); Blood Urea Nitrogen 27.2 mg/dL (9.0-27.0); Carbon Dioxide 19.6 mmol/L (21.6-31.8); Chloride 109 mmol/L (96-109); Globulin 2.5 d/dL (1.6-3.3); Glucose 101 mg/dL (70-110); Potassium 4.4 mmol/L (3.5-5.5); Sodium 140 mmol/L (135-145); Total Bilirubin 0.2 mg/dL (0.3-1.2); Total Protein 6.3 d/dL (6.2-8.2)
[2023-01-01] MEDS ORDERED: ENOXAPARIN 30 MG/0.3 ML SYRINGE SQ SCH (09:00)
[2023-01-01] MEDS: DIPHENOX-ATROP 2.5-0.025 MG 1 EACH TAB PO PRN (09:01)
[2023-01-01] MEDS ORDERED: MAGNESIUM SULFATE-D5W PMX 1 GM in DEXTROSE/WATER 1 100ML.BAG IVPB ONE (13:44)
[2023-01-01 14:03] VITALS: BP 131/78; TEMP 97.7
--- NOTE | 2023-01-01 14:03 | P.DS ---
Providers Date of admission: 12/30/22 11:55 Expected date of discharge: 01/01/23 Attending physician: Virgie Beckett Consults: 12/30/22 12:00 Consult Physician Urgent Consulting Provider: Annette Dobbins Consult Reason/Comments: Hypomagnesemia Do you want consulting provider notified?: Yes 12/31/22 09:13 Consult Physician Urgent Consulting Provider: Lisa Moon Consult Reason/Comments: diarrhea Do you want consulting provider notified?: Yes Primary care physician: Miranda Pederson Hospital Course: Diagnosis on discharge: 1. Acute renal failure. Continue IV fluid nephrology service is consulted 2. Diarrhea. Patient was recently evaluated by GI services and underwent colonoscopy. Patient was diagnosed with collagenous colitis she was started on prednisone during this admission and improved significantly. 3. Hypomagnesemia replacement protocol ordered repeat labs ordered 4. History of hyperlipidemia 5. History of nicotine dependence 6. History of essential hypertension 7. Tobacco abuse Hospital course: This is a 67-year-old female patient of Dr. Pederson who presented with concerns of abnormal labs and increased diarrhea. Patient reports that diarrhea did improve with the Lomotil that she was discharged on. But diarrhea started to increase over the past week. Patient denies any recent illness or change in diet. Patient has a past medical history of hyperlipidemia hypertension and nicotine dependence. Patient was recently admitted and treated for acute renal failure secondary to diarrhea. During that stay patient underwent colonoscopy with Dr. Nogueira and was given IV fluid and nephrology services evaluation. Kidney enzymes did return baseline. Upon arrival patient was found to have a creatinine of 3.92 and magnesium 0.9. White blood cell within normal limits at 7.0. Chest x-ray completed showing mild hyperinflation pain related to depth of inspiration underlying emphysema small hiatal hernia and no acute process seen. EKG completed showing sinus bradycardia. Current vital signs temp 98.2, heart rate 62, respiratory rate 15, blood pressure 95/57 with pulse ox 97% on room air at this time patient has been started on IV fluid nephrology and GI services consulted . 08/18/2022 patient was seen and examined on the medical floor she is alert and oriented 3 in no apparent distress she reports significant improvement with diarrhea, magnesium level is still low at 1.5 but significantly improved since admission, at this time patient is feeling well and wants to go home, she will be given 1 dose of IV magnesium, she will also be given a prescription for magnesium oxide 400 mg twice daily. Patient was seen by gastroenterology during this admission, previous biopsy revealed evidence of collagenous colitis, patient was started on oral prednisone and improved significantly, she was given a prescription for prednisone taper at the time of discharge. Patient has a history of tobacco abuse she was counseled in length during this admission regarding smoking cessation she was kept on NicoDerm patch during this admission she was given a prescription for NicoDerm patch at the time of discharge. Follow-up with primary care physician Dr. Pederson within one week. Plan - Discharge Summary Discharge Rx Participant: No New Discharge Prescriptions: New Nicotine 21Mg/24Hr Patch [Habitrol] 1 patch TRANSDERM DAILY patch predniSONE 30 mg PO DAILY tab Magnesium Oxide [Magox 400] 400 mg PO BID 30 Days #60 tablet Continue Albuterol Inhaler [Ventolin Hfa Inhaler] 1 - 2 puff INHALATION RT-Q6H PRN PRN Reason: Shortness Of Breath Potassium Chloride [K-Tab ER] 20 meq PO DAILY 30 Days #30 tab Cholecalciferol [Vitamin D3 (25 Mcg = 1000 Iu)] 25 mcg PO DAILY Rosuvastatin Calcium 5 mg PO HS Diphenox-Atrop 2.5-0.025 mg [Lomotil] 2 tab PO Q6HR PRN PRN Reason: Diarrhea Mv-Min/Folic/Vit K/Lut/[id number] [Alive Women's 50 Plus Tablet] 1 tab PO DAILY Pantoprazole [Protonix] 40 - 80 mg PO DAILY Metoprolol Tartrate [Lopressor] 50 mg PO DAILY lisinopriL [Zestril] 40 mg PO DAILY 30 Days #60 tab Ubidecarenone [Co Q-10] 300 mg PO DAILY Discharge Medication List Albuterol Inhaler [Ventolin Hfa Inhaler] 1 - 2 puff INHALATION RT-Q6H PRN 12/11/22 [History] Metoprolol Tartrate [Lopressor] 50 mg PO DAILY 12/11/22 [History] Pantoprazole [Protonix] 40 - 80 mg PO DAILY 12/11/22 [History] Potassium Chloride [K-Tab ER] 20 meq PO DAILY 30 Days #30 tab 12/19/22 [Rx] lisinopriL [Zestril] 40 mg PO DAILY 30 Days #60 tab 12/19/22 [Rx] Cholecalciferol [Vitamin D3 (25 Mcg = 1000 Iu)] 25 mcg PO DAILY 12/30/22 [History] Diphenox-Atrop 2.5-0.025 mg [Lomotil] 2 tab PO Q6HR PRN 12/30/22 [History] Mv-Min/Folic/Vit K/Lut/[id number] [Alive Women's 50 Plus Tablet] 1 tab PO DAILY 12/30/22 [History] Rosuvastatin Calcium 5 mg PO HS 12/30/22 [History] Ubidecarenone [Co Q-10] 300 mg PO DAILY 12/30/22 [History] Magnesium Oxide [Magox 400] 400 mg PO BID 30 Days #60 tablet 01/01/23 [Rx] Nicotine 21Mg/24Hr Patch [Habitrol] 1 patch TRANSDERM DAILY patch 01/01/23 [Rx] predniSONE 30 mg PO DAILY tab 01/01/23 [Rx] Follow up Appointment(s)/Referral(s): Miranda Pederson MD [Primary Care Provider] - 1-2 days
--- NOTE | 2023-01-01 14:06 | P.PN ---
Subjective Patient is seen for follow-up for acute kidney injury. Renal function has improved significantly with IV hydration. Diarrhea has improved as well. Serum creatinine down to 1.3. Magnesium is 1.5 mg/dL today. No significant complaints today. Objective - Vital Signs Vital signs: Vital Signs Temp 98.0 F 01/01/23 06:58 Pulse 68 01/01/23 06:58 Resp 18 01/01/23 06:58 BP 147/84 01/01/23 06:58 Pulse Ox 99 01/01/23 06:58 FiO2 Intake & Output 12/31/22 01/01/23 01/01/23 18:59 06:59 18:59 Intake Total 1050 Balance 1050 Intake: Intake, IV Titration 1050 Amount Lactated Ringers 1,000 ml 600 @ 100 mls/hr IV .Q10H MOOSE Rx#:[id number] Sodium Chloride 0.9% 1, 450 000 ml @ 75 mls/hr IV . [id number] STA Rx#:[id number] Other: # Voids 2 2 # Bowel Movements 2 - Exam Patient is awake, comfortable, no acute distress Alert oriented 3 Examination of the heart S1 and S2 Examination of the lungs bilateral breath sounds are heard Abdomen is soft nontender Examination of lower extremities shows no evidence of edema SENIOR DATA ANALYST exam grossly intact - Labs CBC & Chem 7: 01/01/23 05:41 01/01/23 05:41 Labs: Abnormal Lab Results - Last 24 Hours (Table) 01/01/23 01/01/23 01/01/23 Range/Units 05:41 05:41 11:11 RBC 3.64 L (4.10-5.20) X 10*6/uL Hgb 11.5 L (12.0-15.0) d/dL Hct 34.9 L (37.2-46.3) % Eosinophils # 0.03 L (0.04-0.35) X 10*3/uL Carbon Dioxide 19.6 L (21.6-31.8) mmol/L BUN 27.2 H (9.0-27.0) mg/dL Est GFR (CKD-EPI) 45 L (>=60) BUN/Creatinine Ratio 20.92 H (12.00-20.00) Ratio Magnesium 1.5 L (1.6-2.3) mg/dL Total Bilirubin 0.2 L (0.3-1.2) mg/dL Albumin/Globulin Ratio 1.52 L (1.60-3.17) Ratio Assessment and Plan Assessment: 1. Acute kidney injury secondary to hemodynamic ATN from hypotension and volume depletion in the setting of use of MARISELA inhibitor's. Currently nonoliguric and improving. 2. Volume depletion 3. Hypotension from hypovolemia 4. Hypomagnesemia from GI fluid loss from diarrhea 5. History of acute kidney injury with serum creatinine as high as 12.5 during her last admission on 12/12/2022. This had resolved with serum creatinine down to 0.8 mg/dL on 12/17/2022. 6. History of hypertension maintained on MARISELA inhibitor's as outpatient. Plan: Okay to discharge patient. Hold lisinopril and we can use calcium channel blockers if needed for hypertension as outpatient. Once volume status and blood pressure stabilizes we can resume low-dose MARISELA inhibitor's down the road.
--- NOTE | 2023-01-01 15:22 | P.PN ---
Subjective Progress Note Date: 01/01/23 Principal diagnosis: Diarrhea This pleasant 59-year-old female who was recently hospitalized and seen by gastroenterology for chronic diarrhea. During that time she had a colonoscopy done on 06/19/2022 and examined colon polyps status post polypectomy, otherwise normal-appearing colon. Multiple biopsies were collected. Biopsy results show ascending colon transverse and descending colon with collagenous colitis. Patient states that her diarrhea has improved since the last time she was admitted to the hospital however she still having about 8 a day. She states that they were more brown but now they're turning a little more green again. She has been taking Lomotil 2 tablets every 4 hours at home as needed. Denies any nausea or vomiting, no abdominal pain, but she states that she was told her magnesium level was low and her kidney functions were abnormal and was told to come to the emergency department. Patient is afebrile. Labs WBC 5.4 hemoglobin 12 hematocrit 36 platelet count 277,000 sodium 139 potassium 4.1 BUN 33 creatinine 2.1 magnesium on admission 0.9 repeat 2.1 total bilirubin 0.2 AST 25 ALT 48 alkaline phosphatase 67 stool C. diff negative 01/01/2023 Patient seen and examined today as a follow-up. She states this is the first night for months that she did not wake up to have a bowel movement. She did have 2 loose bowel movements this morning. She continues to deny any abdominal pain, nausea or vomiting. Magnesium improving up to 1.5 today. Objective - Vital Signs Vital signs: Vital Signs Temp 98.0 F 01/01/23 06:58 Pulse 68 01/01/23 06:58 Resp 18 01/01/23 06:58 BP 147/84 01/01/23 06:58 Pulse Ox 99 01/01/23 06:58 FiO2 Intake & Output 12/31/22 01/01/23 01/01/23 18:59 06:59 18:59 Intake Total 1050 Balance 1050 Intake: Intake, IV Titration 1050 Amount Lactated Ringers 1,000 ml 600 @ 100 mls/hr IV .Q10H MOOSE Rx#:[id number] Sodium Chloride 0.9% 1, 450 000 ml @ 75 mls/hr IV . [id number] STA Rx#:[id number] Other: # Voids 2 2 # Bowel Movements 2 - Exam General appearance: The patient is alert, oriented, appears in no acute distress. HET: Head is normocephalic and atraumatic. Conjunctiva pink. Sclera anicteric. Neck: Supple without lymphadenopathy. Abdomen: Soft, nontender, nondistended with bowel sounds. No guarding or rigidity. Extremities: Normal skin color and turgor. No pedal edema Skin: No rashes, no jaundice Neurological: No focal deficits. Alert and oriented. - Labs CBC & Chem 7: 01/01/23 05:41 01/01/23 05:41 Labs: Abnormal Lab Results - Last 24 Hours (Table) 12/31/22 12/31/22 01/01/23 Range/Units 06:38 06:38 05:41 RBC 3.78 L 3.64 L (4.10-5.20) X 10*6/uL Hgb 11.5 L (12.0-15.0) d/dL Hct 36.4 L 34.9 L (37.2-46.3) % Eosinophils # 0.03 L (0.04-0.35) X 10*3/uL Carbon Dioxide 18.6 L (21.6-31.8) mmol/L Anion Gap 12.40 H (4.00-12.00) mmol/L BUN 33.6 H (9.0-27.0) mg/dL Creatinine 2.1 H (0.6-1.5) mg/dL Est GFR (CKD-EPI) 25 L (>=60) BUN/Creatinine Ratio (12.00-20.00) Ratio Total Bilirubin 0.2 L (0.3-1.2) mg/dL ALT 48 H (8-44) U/L Total Protein 6.0 L (6.2-8.2) d/dL Albumin 3.6 L (3.8-4.9) d/dL Albumin/Globulin Ratio 1.50 L (1.60-3.17) Ratio 01/01/23 Range/Units 05:41 RBC (4.10-5.20) X 10*6/uL Hgb (12.0-15.0) d/dL Hct (37.2-46.3) % Eosinophils # (0.04-0.35) X 10*3/uL Carbon Dioxide 19.6 L (21.6-31.8) mmol/L Anion Gap (4.00-12.00) mmol/L BUN 27.2 H (9.0-27.0) mg/dL Creatinine (0.6-1.5) mg/dL Est GFR (CKD-EPI) 45 L (>=60) BUN/Creatinine Ratio 20.92 H (12.00-20.00) Ratio Total Bilirubin 0.2 L (0.3-1.2) mg/dL ALT (8-44) U/L Total Protein (6.2-8.2) d/dL Albumin (3.8-4.9) d/dL Albumin/Globulin Ratio 1.52 L (1.60-3.17) Ratio Assessment and Plan (1) Collagenous colitis Narrative/Plan: 67-year-old female with chronic diarrhea presented for abnormal labs. Patient was recently hospitalized for ongoing diarrhea over last several months. She had a colonoscopy done during her last admission 12/17/2022 showing collagenous colitis. Discussed with patient that this can be common in elderly and is treated generally with steroids. Recommend budesonide however not available in this hospital. Will start patient on prednisone 30 mg daily and taper by 10 mg weekly. Continue with Lomotil 2 tablets every 4 hours as needed. Current Visit: Yes Status: Acute Code(s): K52.831 - COLLAGENOUS COLITIS SNOMED Code(s): 36351754 (2) Diarrhea Current Visit: No Status: Acute Code(s): R19.7 - DIARRHEA, UNSPECIFIED SNOMED Code(s): 61028804 (3) Hypomagnesemia Current Visit: Yes Status: Acute Code(s): E83.42 - HYPOMAGNESEMIA SNOMED Code(s): 984747329 (4) Acute renal failure (ARF) Current Visit: No Status: Acute Code(s): N17.9 - ACUTE KIDNEY FAILURE, UNSPECIFIED SNOMED Code(s): 31339499 Plan: 1. Continue symptomatic and supportive care 2. Diet as tolerated 3. Lomotil 2 tablets every 4 hours as needed 4. Start prednisone 30 mg daily, taper by 5 mg weekly 5. Follow-up in the office of gastroenterology in 2-3 weeks 6. Replace magnesium per protocol Thank you for this consultation, patient is cleared for discharge from gastroenterology. Dr. Suhail Moon I agree with the dictator's note, documented as a scribe by Tierney Temple.
[2023-01-02] MEDS ORDERED: ENOXAPARIN 40 MG/0.4 ML SYRINGE SQ SCH (09:00)
== END 2023-01-01 15:43 | disposition home or self-care (01) | DRG 683 ==
LOC: EC 09:29 → 4SSUR 11:55
PROVIDERS: ADMIT Internal Medicine; ATTEND Internal Medicine
DX: N17.0 Acute kidney failure with tubular necrosis (principal); E87.20 Acidosis, unspecified; E83.42 Hypomagnesemia; R00.1 Bradycardia, unspecified; E78.5 Hyperlipidemia, unspecified; I10 Essential (primary) hypertension; E86.9 Volume depletion, unspecified; E86.1 Hypovolemia; I95.89 Other hypotension; K52.831 Collagenous colitis; F17.210 Nicotine dependence, cigarettes, uncomplicated; J43.9 Emphysema, unspecified; K44.9 Diaphragmatic hernia without obstruction or gangrene; K52.9 Noninfective gastroenteritis and colitis, unspecified; Z86.010 Personal history of colon polyps; Z79.899 Other long term (current) drug therapy; Z88.0 Allergy status to penicillin; Z71.6 Tobacco abuse counseling; Z87.19 Personal history of other diseases of the digestive system
CPT/HCPCS: 36415; 71046; 80053; 81003; 83735; 84100; 85025; 87045; 87046; 87324; 93005; 96365; 96366; 99285

== ENCOUNTER → 2023-03-23 | Outpatient (CLI) | payer MEDICARE ==
--- NOTE | 2023-03-23 09:42 | US ---
EXAMINATION TYPE: US kidneys/renal and bladder DATE OF EXAM: 03/23/2023 COMPARISON: 12/12/22 US renal CLINICAL INDICATION: Female, 67 years old with history of R93.422 ABNORMAL RADIOLOGIC FINDINGS ON DX IMAGING; Abnormal left kidney from prior US 12/12 EXAM MEASUREMENTS: Right Kidney: 11.5 x 5.5 x 5.1 cm Left Kidney: 12.0 x 4.9 x 4.4 cm Right Kidney: Increased medullary echogenicity Left Kidney: Increased medullary echogenicity; no evidence of mass seen today - normal renal tissue n oted Bladder: Anechoic; not fully distended Bilateral Jets seen: No There is no evidence for hydronephrosis at this point in time. No nephrolithiasis is seen. No sangeetha s are identified. The urinary bladder is anechoic. Bilateral ureteral jets are seen. IMPRESSION: 1. Medical renal disease. 2. No evidence of mass.
== END | disposition home or self-care (01) ==
LOC: RADUSWWP 08:55
PROVIDERS: ATTEND Family Medicine
DX: N28.89 Other specified disorders of kidney and ureter (principal); R93.422 Abnormal radiologic findings on diagnostic imaging of left kidney
CPT/HCPCS: 76770

== ENCOUNTER → 2023-11-23 | Outpatient (CLI) | payer MEDICARE ==
--- NOTE | 2023-11-23 20:50 | CTL ---
EXAMINATION TYPE: CT Low Dose Lung DATE OF EXAM ORDERED: 11/23/2023 HISTORY: 67-year-old female F17.210, nicotine dependence, current smoker with 46 pack-year history. L [place] cancer screening CT DLP: 96.[address] CTDI: 2.4 mGy Automated exposure control for dose reduction was used. SCREENING VISIT: Annual follow-up COMPARISON: 11/21/2022 TECHNIQUE: Low dose computed tomography scan was performed through the chest at 1 mm thick sections a nd reconstructed images in multiple planes at 1 mm and [address] DIAGNOSTIC QUALITY: Satisfactory FINDINGS: Heart is normal size without pericardial effusion. Mild aortic valvular calcifications and more moder ate mitral valve calcifications are noted. Some LAD and RCA coronary calcifications are present. Mild to moderate aortic arch calcifications and conventional arch vessel branching anatomy. Borderline sized lower right paratracheal lymph node at 1.1 cm is unchanged. Otherwise, no thoracic a denopathy by CT size criteria. [id number]-[id number] diffuse bronchial wall thickening. Minimal biapical pleural parenchymal scarring is unchanged. No consolidation or pleural effusion. No suspicious, greater than 4 mm pulmonary nodules. There is a moderate sized hiatal hernia redemonstrated. There is surgical material at the hiatal james ia. Suspect a slipped Susana fundoplication wrap. Bones: Mild degenerative disc disease mid to lower thoracic spine. IMPRESSION: 1. LungRADS 2, benign; no suspicious pulmonary nodules. 2. Prominent bronchial wall thickening suggesting bronchitis or chronic asthma. Recommend smoking daniel sation. 3. Ongoing moderate sized hiatal hernia. Suspect a slipped Susana fundoplication wrap. If symptomatic , consider referring the patient back to their surgeon. CT LUNG RAD AND CT CHEST RECOMMENDATION: Lung-Rad 2 Benign Appearance or Behavior: Continue annual sc reening with LDCT in 12 months. S Modifier (other clinically significant findings): None
--- NOTE | 2023-11-24 18:16 | MM ---
Reason for Exam: Screening (asymptomatic). Last screening mammogram was performed 12 month(s) ago. Patient History: Menarche at age 11. First Full-Term at age 25. Postmenopausal. Patient has history of breast feeding. Risk Values: Maddison 5 year model risk: 1.9%. NCI Lifetime model risk: 6.2%. Prior Study Comparison: 11/20/2021 Bilateral MG 3D screening mammo w/cad, [facility]. 05/28/2022 Left MG 3D diag mammo w/cad LT, [facility]. 11/21/2022 Bilateral MG 3D screening mammo w/cad, [facility]. Tissue Density: There are scattered areas of fibroglandular density. Findings: Analyzed By CAD. There is no suspicious group of microcalcifications or new suspicious mass in either breast. Overall Assessment: Negative, BI-RAD 1 Management: Screening Mammogram of both breasts in 1 year. . Patient should continue monthly self-breast exams. A clinical breast exam by your physician is recommended on an annual basis. This exam should not preclude additional follow-up of suspicious palpable abnormalities. Note on Maddison scores and lifetime risk: 1. A Maddison score greater than 3% is considered moderate risk. If this is the case, consider specialist referral to assess eligibility for a risk reducing agent. 2. If overall lifetime risk for the development of breast cancer is 20% or higher, the patient may qualify for future screening with alternating mammogram and breast MRI. Electronically signed and approved by: More Franklin M.D. Radiologist
== END | disposition home or self-care (01) ==
LOC: RADMAMWWP 12:17
PROVIDERS: ATTEND Family Medicine
DX: Z12.31 Encounter for screening mammogram for malignant neoplasm of breast (principal); Z12.2 Encounter for screening for malignant neoplasm of respiratory organs; F17.210 Nicotine dependence, cigarettes, uncomplicated; Z78.0 Asymptomatic menopausal state; K44.9 Diaphragmatic hernia without obstruction or gangrene
CPT/HCPCS: 71271; 77063; 77067

== ENCOUNTER 2024-06-28 12:14 | Inpatient (IN) | payer MEDICARE ==
--- NOTE | 2024-06-28 12:29 | ED ---
Neuro HPI - General Chief Complaint: Neuro Symptoms/Deficit Stated Complaint: Irreg BP,R sided pain Time Seen by Provider: 06/28/24 12:28 Source: patient, RN notes reviewed, old records reviewed Mode of arrival: ambulatory Limitations: no limitations - History of Present Illness Is the patient presenting with stroke symptoms?: Yes -: hour(s) (5) Initial Comments: This is a 68-year-old female high blood pressure high cholesterol and her history coming in for right leg weakness right arm weakness lightheadedness, elevated blood pressure here in the ER history of uncontrolled blood pressure. Patient has no headaches chest pain shortness of breath or other complaints Location: right face, right arm, right leg Place: home Severity: mild Quality: weak, numb, tingling Improves With: time Worsens With: none Context: gradual onset Associated Symptoms: denies other symptoms Treatments Prior to Arrival: none - Related Data Home Medications: Home Medications Medication Instructions Recorded Confirmed Metoprolol Tartrate [Lopressor] 50 mg PO DAILY 12/11/22 06/28/24 Pantoprazole [Protonix] 40 - 80 mg PO DAILY 12/11/22 06/28/24 Cholecalciferol [Vitamin D3 (25 50 mcg PO DAILY 12/30/22 06/28/24 Mcg = 1000 Iu)] Ezetimibe [Zetia] 10 mg PO DAILY 06/28/24 06/28/24 Magnesium Oxide [Magox 400] 400 mg PO DAILY 06/28/24 06/28/24 Allergies/Adverse Reactions: Allergies Allergy/AdvReac Type Severity Reaction Status Date / Time Penicillins Allergy Swelling Verified 06/28/24 14:18 Review of Systems ROS Statement: Those systems with pertinent positive or pertinent negative responses have been documented in the HPI. ROS Other: All systems not noted in ROS Statement are negative. General Exam Limitations: no limitations General appearance: alert, in no apparent distress Head exam: Present: atraumatic, normocephalic, normal inspection Eye exam: Present: normal appearance, PERRL, EOMI. Absent: scleral icterus, conjunctival injection, periorbital swelling ENT exam: Present: normal exam, mucous membranes moist Neck exam: Present: normal inspection. Absent: tenderness, meningismus, lymphadenopathy Respiratory exam: Present: normal lung sounds bilaterally. Absent: respiratory distress, wheezes, rales, rhonchi, stridor Cardiovascular Exam: Present: regular rate, normal rhythm, normal heart sounds. Absent: systolic murmur, diastolic murmur, rubs, gallop, clicks GI/Abdominal exam: Present: soft, normal bowel sounds. Absent: distended, tenderness, guarding, rebound, rigid Extremities exam: Present: normal inspection, full ROM, normal capillary refill. Absent: tenderness, pedal edema, joint swelling, calf tenderness Back exam: Present: normal inspection Neurological exam: Present: alert, oriented X3, CN II-XII intact Psychiatric exam: Present: normal affect, normal mood Skin exam: Present: warm, dry, intact, normal color. Absent: rash Stroke MDM - Lab Data Result diagrams: 06/28/24 12:47 06/28/24 12:47 Lab Results 06/28/24 06/28/24 06/28/24 Range/Units 12:47 12:47 12:47 WBC 8.6 (3.8-10.6) k/uL RBC 4.61 (3.80-5.40) m/uL Hgb 14.3 (11.4-16.0) gm/dL Hct 44.1 (34.0-46.0) % MCV 95.5 (80.0-100.0) fL MCH 30.9 (25.0-35.0) pg MCHC 32.4 (31.0-37.0) g/dL RDW 12.7 (11.5-15.5) % Plt Count 251 (150-450) k/uL MPV 8.7 Neutrophils % 55 % Lymphocytes % 33 % Monocytes % 5 % Eosinophils % 6 % Basophils % 1 % Neutrophils # 4.7 (1.3-7.7) k/uL Lymphocytes # 2.8 (1.0-4.8) k/uL Monocytes # 0.4 (0-1.0) k/uL Eosinophils # 0.5 (0-0.7) k/uL Basophils # 0.1 (0-0.2) k/uL PT 10.7 (10.0-12.5) sec INR 1.0 (<1.2) APTT 22.4 (22.0-30.0) sec Sodium 136 L (137-145) mmol/L Potassium 4.3 (3.5-5.1) mmol/L Chloride 99 (98-107) mmol/L Carbon Dioxide 28 (22-30) mmol/L Anion Gap 9 mmol/L BUN 24 H (7-17) mg/dL Creatinine 1.00 (0.52-1.04) mg/dL Est GFR (CKD-EPI)AfAm 67 (>60 ml/min/1.73 sqM) Est GFR (CKD-EPI)NonAf 58 (>60 ml/min/1.73 sqM) Glucose 103 H (74-99) mg/dL Calcium 10.3 H (8.4-10.2) mg/dL Total Bilirubin 0.4 (0.2-1.3) mg/dL AST 24 (14-36) U/L ALT 23 (4-34) U/L Alkaline Phosphatase 84 (38-126) U/L Creatine Kinase 56 (30-135) U/L Troponin I (0.000-0.034) ng/mL Total Protein 7.6 (6.3-8.2) g/dL Albumin 4.3 (3.5-5.0) g/dL 06/28/24 Range/Units 12:47 WBC (3.8-10.6) k/uL RBC (3.80-5.40) m/uL Hgb (11.4-16.0) gm/dL Hct (34.0-46.0) % MCV (80.0-100.0) fL MCH (25.0-35.0) pg MCHC (31.0-37.0) g/dL RDW (11.5-15.5) % Plt Count (150-450) k/uL MPV Neutrophils % % Lymphocytes % % Monocytes % % Eosinophils % % Basophils % % Neutrophils # (1.3-7.7) k/uL Lymphocytes # (1.0-4.8) k/uL Monocytes # (0-1.0) k/uL Eosinophils # (0-0.7) k/uL Basophils # (0-0.2) k/uL PT (10.0-12.5) sec INR (<1.2) APTT (22.0-30.0) sec Sodium (137-145) mmol/L Potassium (3.5-5.1) mmol/L Chloride (98-107) mmol/L Carbon Dioxide (22-30) mmol/L Anion Gap mmol/L BUN (7-17) mg/dL Creatinine (0.52-1.04) mg/dL Est GFR (CKD-EPI)AfAm (>60 ml/min/1.73 sqM) Est GFR (CKD-EPI)NonAf (>60 ml/min/1.73 sqM) Glucose (74-99) mg/dL Calcium (8.4-10.2) mg/dL Total Bilirubin (0.2-1.3) mg/dL AST (14-36) U/L ALT (4-34) U/L Alkaline Phosphatase (38-126) U/L Creatine Kinase (30-135) U/L Troponin I <0.012 (0.000-0.034) ng/mL Total Protein (6.3-8.2) g/dL Albumin (3.5-5.0) g/dL - NIH Stroke Scale 1a. Level of Consciousness: (0) alert 1b. LOC Questions: (0) answers correctly 1c. LOC Commands: (0) performs tasks correctly 2. Best Gaze: (0) normal 3. Visual: (0) no visual loss 4. Facial Palsy: (0) normal symmetrical movement 5a. Motor Arm Left: (0) no drift 5b. Motor Arm Right: (0) no drift 6a. Motor Leg Left: (1) drift 6b. Motor Leg Right: (0) no drift 7. Limb Ataxia: (1) present 1 limb 8. Sensory: (0) normal 9. Best Language: (0) no aphasia 10. Dysarthria: (0) normal 11. Extinction/Inattention: (0) no abnormality - Thrombolytic Inclusion/Exclusion Thrombolytic Exclusion Criteria: Symptom Onset > 4.5 Hours - Medical Decision Making 68 female to ER for evaluation of hypertensive urgency emergency with TIA symptoms improving right-sided weakness patient has CT findings of lacunar infarct not correlating with symptoms - Radiology Data Radiology results: report reviewed (Brain CTA positive for lacunar infarct), image reviewed - EKG Data -: EKG Interpreted by Me (EKG is Sinus bradycardia 56 MT 145 QRS 86 QTc 415) Past Medical History Past Medical History: Hyperlipidemia, Hypertension, Renal Disease History of Any Multi-Drug Resistant Organisms: None Reported Past Surgical History: Section, Hernia Repair Past Anesthesia/Blood Transfusion Reactions: No Reported Reaction Past Psychological History: No Psychological Hx Reported Smoking Status: Current every day smoker Past Alcohol Use History: None Reported Past Drug Use History: None Reported Course Vital Signs 06/28/24 06/28/24 06/28/24 12:22 13:58 14:03 Temperature 98 F Pulse Rate 62 57 L 60 Respiratory 18 18 18 Rate Blood Pressure 179/96 217/85 222/84 O2 Sat by Pulse 98 99 99 Oximetry 06/28/24 06/28/24 14:05 15:00 Temperature 98.2 F Pulse Rate 62 64 Respiratory 16 16 Rate Blood Pressure 212/87 200/92 O2 Sat by Pulse 100 100 Oximetry - Reevaluation(s) Reevaluation #1: 06/28/24 13:01 Medical records reviewed Reevaluation #2: 06/28/24 15:33 Symptoms continue to improve Reevaluation #3: 06/28/24 15:33 Patient informed of results and questions answered Reevaluation #4: Was pt. sent in by a medical professional or institution (, PA, FREELANCE TRANSLATOR, urgent care, hospital, or jail...) When possible be specific @ -no Did you speak to anyone other than the patient for history (EMS, parent, family, police, friend...)? What history was obtained from this source @ -no Did you review nursing and triage notes (agree or disagree)? Why? @ -agree Are old charts reviewed (outside hosp., previous admission, EMS record, old EKG, old radiological studies, urgent care reports/EKG's, jail records)? Report findings @ -yes Differential Diagnosis (chest pain, altered mental status, abdominal pain women, abdominal pain men, vaginal bleeding, weakness, fever, dyspnea, syncope, headache, dizziness, GI bleed, back pain, seizure, CVA, palpatations, mental health, musculoskeletal)? @ -prior EKG interpreted by me (3pts min.). @ -yes X-rays interpreted by me (1pt min.). @ -yes negative for acute disease CT interpreted by me (1pt min.). @ -no U/S interpreted by me (1pt. min.). @ -no What testing was considered but not performed or refused? (CT, X-rays, U/S, labs)? Why? @ -none What meds were considered but not given or refused? Why? @ -none Did you discuss the management of the patient with other professionals (lalito lowe i.e. , PA, FREELANCE TRANSLATOR, lab, RT, psych nurse, psychologist social, reverberatory furnace supervisor, teacher, banking services officer, counseling case manager)? Give summary @ -no Was smoking cessation discussed for >3mins.? @ -no Was critical care preformed (if so, how long)? @ -no Were there social determinants of health that impacted care today? How? (Homelessness, low income, unemployed, alcoholism, drug addiction, transportation, low edu. Level, literacy, decrease access to med. care, assisted, rehab)? @ -none Was there de-escalation of care discussed even if they declined (Discuss DNR or withdrawal of care, Hospice)? DNR status @ -no What co-morbidities impacted this encounter? (DM, HTN, Smoking, COPD, CAD, Cancer, CVA, ARF, Chemo, Hep., AIDS, mental health diagnosis, sleep apnea, morbid obesity)? @ -none Was patient admitted / discharged? Hospital course, mention meds given and route, prescriptions, significant lab abnormalities, going to OR and other pertinent info. @ - Undiagnosed new problem with uncertain prognosis? @ -no Drug Therapy requiring intensive monitoring for toxicity (Heparin, Nitro, Insulin, Cardizem)? @ -no Were any procedures done? @ -no Diagnosis/symptom? @ - Acute, or Chronic, or Acute on Chronic? @ -Acute Uncomplicated (without systemic symptoms) or Complicated (systemic symptoms)? @ -Complicated Side effects of treatment? @ -no Exacerbation, Progression, or Severe Exacerbation? @ -exacerbation Poses a threat to life or bodily function? How? (Chest pain, USA, CT, pneumonia, PE, COPD, DKA, ARF, appy, cholecystitis, CVA, Diverticulitis, Homicidal, Suicidal, threat to staff... and all critical care pts) @ -yes Reevaluation #5: Differential CVA Ischemic stroke, hemorrhagic stroke, brain tumor, atypical migraine, Wernicke's encephalopathy, seizure, multiple sclerosis, meningitis, encephalitis, hypoglycemia, Guillain-Campuzano, electrolytes disturbance, myasthenia gravis.... This is not meant to be an all-inclusive list - Consultations Consultation #1: Spoke with Dr. Beckett who agrees to admit this patient Critical Care Time Critical Care Time: Yes Total Critical Care Time: 31 Disposition Clinical Impression: Transient cerebral ischemia, Hypertensive urgency, Weakness Disposition: ADMITTED IP TO THIS HOSP Condition: Serious Is patient prescribed a controlled substance at d/c from ED?: No Referrals: Miranda Pederson MD [Primary Care Provider] - 1-2 days Time of Disposition: 15:30
[2024-06-28 12:55] LABS: Basophils # (A) 0.1 k/uL (0-0.2); Basophils % (A) 1 %; Eosinophils # (A) 0.5 k/uL (0-0.7); Eosinophils % (A) 6 %; HCT 44.1 % (34.0-46.0); HGB 14.3 gm/dL (11.4-16.0); Lymphocytes # (A) 2.8 k/uL (1.0-4.8); Lymphocytes % (A) 33 %; MCH 30.9 pg (25.0-35.0); MCHC 32.4 g/dL (31.0-37.0); MCV 95.5 fL (80.0-100.0); Mean Platelet Volume 8.7; Monocytes # (A) 0.4 k/uL (0-1.0); Monocytes % (A) 5 %; Neutrophils # (A) 4.7 k/uL (1.3-7.7); Neutrophils % (A) 55 %; Platelet Count 251 k/uL (150-450); RBC 4.61 m/uL (3.80-5.40); RDW 12.7 % (11.5-15.5); WBC 8.6 k/uL (3.8-10.6)
--- NOTE | 2024-06-28 13:27 | CT ---
EXAMINATION TYPE: CT brain wo con DATE OF EXAM: 06/28/2024 COMPARISON: None CLINICAL INDICATION: Female, 68 years old with history of Neuro deficit, acute, stroke suspected; PHH , Rt sided weakness CT DLP: 1085 mGycm Automated exposure control for dose reduction was used. Findings: The ventricles, basal cisterns and sulci over the convexities are within normal limits and there is n o mass effect or shift of midline structures. There is remote lacunar infarct in the left centrum semiovale. There is mild decreased density in the periventricular white matter consistent with chronic ischemic white matter demyelination. There is no acute intra or extra-axial hemorrhage. The posterior fossa including the brainstem, fourth ventricle and cerebellar pontine angles appear no rmal. Intraorbital contents appear normal and symmetric. Visualized paranasal sinuses and mastoid air cells are well aerated. The calvarium is intact. IMPRESSION: 1. No acute bleed or mass effect. 2. Mild diffuse chronic ischemic white matter demyelination. 3. Remote lacunar infarct in the left centrum semiovale. [facility], , 06/28/2024 1:24 PM
[2024-06-28] MEDS: SODIUM CHLORIDE 0.9% 1,000 ML IV STA (13:33)
--- NOTE | 2024-06-28 13:33 | XR ---
EXAMINATION TYPE: XR chest 2V DATE OF EXAM: 06/28/2024 1:23 PM COMPARISON: 12/30/2022 CLINICAL INDICATION: Female, 68 years old with confusion history of altered mental status, , TECHNIQUE: PA and lateral views FINDINGS: Heart normal size. Aorta and pulmonary vasculature within normal limits. Mild interstitial prominence has a chronic appearance. No consolidation or pleural effusion. IMPRESSION: Chronic changes. No acute process seen. [facility], , 06/28/2024 1:31 PM
[2024-06-28 13:38] LABS: Partial Thromboplastin Time 22.4 sec (22.0-30.0); Prothrombin Time 10.7 sec (10.0-12.5)
[2024-06-28 13:41] LABS: ALT 23 U/L (4-34); AST 24 U/L (14-36); African American GFR (CKD) 67 (>60 ml/min/1.73 sqM); Albumin 4.3 g/dL (3.5-5.0); Alkaline Phosphatase 84 U/L (38-126); Anion Gap 9 mmol/L; Blood Urea Nitrogen 24 mg/dL (7-17); Calcium 10.3 mg/dL (8.4-10.2); Carbon Dioxide 28 mmol/L (22-30); Chloride 99 mmol/L (98-107); Creatine Kinase 56 U/L (30-135); Glucose 103 mg/dL (74-99); Non-African American GFR(CKD) 58 (>60 ml/min/1.73 sqM); Potassium 4.3 mmol/L (3.5-5.1); Sodium 136 mmol/L (137-145); Total Bilirubin 0.4 mg/dL (0.2-1.3); Total Protein 7.6 g/dL (6.3-8.2)
--- NOTE | 2024-06-28 13:41 | CT ---
EXAMINATION TYPE: CT angio head neck DATE OF EXAM: 06/28/2024 COMPARISON: CLINICAL INDICATION: Female, 68 years old with history of Neuro deficit, acute, stroke suspected; PHH , Rt sided weakness TECHNIQUE: CTA scan of the head and neck is performed with IV Contrast, patient injected with 65 mL of Isovue 370, axial images are obtained, coronal and sagittal reformatted images are reviewed. 3D re constructed images are created on an independent workstation and reviewed. None CT DLP: 549.[address] CTDI: mGy Automated exposure control for dose reduction was used. NASCET criteria was used in interpretation of this exam? FINDINGS: FINDINGS: The brachiocephalic origins are widely patent and no significant stenosis. There is minimal calcified plaque at the right carotid bifurcation with no hemodynamically significan t stenosis. There is marked calcification of the left carotid bifurcation with a moderate distal left common myers tid artery stenosis and severe than 70% stenosis origin left internal carotid artery. There is no vertebral artery stenosis. Intracranially, there is no stenosis, segmental occlusion, sizable aneurysm sac or vascular malforma tion. IMPRESSION:. Moderate stenosis of the distal left common carotid arteries are greater than 70% stenos is of the origin left internal carotid artery. No other significant occlusive disease within the neck or intracranially. NASCET criteria was used in interpretation of this exam? [facility], Workstation: [id number] 06/28/2024 1:38 PM
[2024-06-28] MEDS: LABETALOL 5 MG/ML VIAL MDV IVP STA (14:31)
[2024-06-28] MEDS ORDERED: hydrALAZINE HCL 20 MG/ML 1 ML VIAL IVP PRN (16:21)
[2024-06-28] MEDS: MORPHINE SULFATE 4 MG/ML SYRINGE IVP STA (16:46)
[2024-06-28] MEDS: ACETAMINOPHEN TAB 500 MG TAB PO STA (16:46)
[2024-06-28] MEDS: ACET/COD 300 MG/30 MG STARTER PACK 6 TAB BTL PO STA (16:46)
[2024-06-28] MEDS: PANTOPRAZOLE 40 MG TABLET PO SCH (16:56)
[2024-06-28] MEDS: ASPIRIN 325 MG TAB PO STA (16:56)
[2024-06-28] MEDS: CHOLECALCIFEROL 25 MCG (1000 IU) TABLET PO SCH (16:56)
[2024-06-28] MEDS: EZETIMIBE 10 MG TAB PO SCH (16:57)
[2024-06-28] MEDS: FUROSEMIDE 10 MG/ML 2 ML VIAL IV ONE (16:58)
[2024-06-28] MEDS: MAGNESIUM OXIDE 400 MG TAB PO SCH (16:58)
[2024-06-28] MEDS: LOSARTAN 50 MG TAB PO SCH (16:58)
[2024-06-28] MEDS: METOPROLOL TARTRATE 50 MG TAB PO SCH (16:59)
[2024-06-28] MEDS: SODIUM CHLORIDE 0.9% 1,000 ML IV SCH (17:00)
--- NOTE | 2024-06-28 17:45 | P.CNNES ---
History of Present Illness Consult date: 06/28/24 Requesting physician: Rikki Davis Reason for Consult: tia History of Present Illness: This 68-year-old woman who presented emergency department because of right sided weakness. Patient stated that she noticed that she had right sided weakness around 8:30 AM today and prior to that she was doing well and had no deficit. She stated that she noticed the weakness initially in the right leg then went to the right arm. Currently she feels her symptoms has resolved. She denies any facial weakness, speech difficulty, visual disturbance. She denies any history of stroke. She does have underlying history of hypertension and its uncontrolled states that her blood pressure runs systolic in the 180s at home. She has history of tobacco use and she smoked for 46 years and last cigarette use was 6 months ago. She drinks about 3 to 4 glasses of alcohol daily. Denies being on any antiplatelet. Denies any A-fib or flutter. Denies any illicit drug use. Some of the workup during this hospital visit consisted of: While in the ED the patient systolic blood pressure was in the 200 as high as 222 and diastolic in the 80s to 90s. I reviewed the lab workup next CT of the head is reported as no acute bleed or mass effect. Mild diffuse chronic ischemic white matter demyelination. Remote lacunar infarct in the left centrum semiovale. I personally reviewed the CT and I agree there is no acute or subacute stroke CT angiography of the head and neck is reported as moderate stenosis of the distal left common carotid artery are greater than 70% stenosis of the origin of the left internal carotid artery. No other significant occlusive disease within the neck or intracranially. Current NIH stroke scale is 0. Review of Systems Review of system as per HPI. Past Medical History Past Medical History: Hyperlipidemia, Hypertension, Renal Disease History of Any Multi-Drug Resistant Organisms: None Reported Past Surgical History: Section, Hernia Repair Past Anesthesia/Blood Transfusion Reactions: No Reported Reaction Past Psychological History: No Psychological Hx Reported Smoking Status: Current every day smoker Past Alcohol Use History: None Reported Past Drug Use History: None Reported Medications and Allergies Home Medications Medication Instructions Recorded Confirmed Type Metoprolol Tartrate [Lopressor] 50 mg PO DAILY 12/11/22 06/28/24 History Pantoprazole [Protonix] 40 - 80 mg PO DAILY 12/11/22 06/28/24 History Cholecalciferol [Vitamin D3 (25 50 mcg PO DAILY 12/30/22 06/28/24 History Mcg = 1000 Iu)] Ezetimibe [Zetia] 10 mg PO DAILY 06/28/24 06/28/24 History Magnesium Oxide [Magox 400] 400 mg PO DAILY 06/28/24 06/28/24 History Allergies Allergy/AdvReac Type Severity Reaction Status Date / Time Penicillins Allergy Swelling Verified 06/28/24 14:18 Physical Examination - Vital Signs Vital Signs: Vital Signs Temp Pulse Resp BP Pulse Ox 06/28/24 17:25 64 06/28/24 17:00 98.4 F 64 18 186/83 100 06/28/24 15:00 64 16 200/92 100 06/28/24 14:05 98.2 F 62 16 212/87 100 06/28/24 14:03 60 18 222/84 99 06/28/24 13:58 57 L 18 217/85 99 06/28/24 12:22 98 F 62 18 179/96 98 Intake and Output 06/28/24 06/28/24 06/28/24 06:59 14:59 22:59 Other: Weight 86.183 kg GENERAL: The patient is lying in bed and is not in acute distress. NEUROLOGICAL: Higher mental function: The patient is awake, alert, oriented to self, place and time. Patient is following commands. No aphasia and no neglect. Cranial nerves: The pupils are round, equal and reactive to light and accommo dation. Visual grullon are full to confrontation throughout. Extraocular movement is intact no nystagmus is noted. Facial sensation is normal to touch throughout. The facial strength is normal throughout. Hearing is normal bilaterally to hand rub. Tongue is midline and moved [id number] without any difficulty. No dysarthria is noted. Shoulder shrug is normal bilaterally. Motor: The strength is 5 over 5 throughout. Normal tone and bulk. Cerebellum: Normal finger to nose heel to dhin bilaterally. Sensation: Sensation is normal to touch throughout. Reflexes (right/left): 2+ throughout. Results - Laboratory Findings CBC and BMP: 06/28/24 12:47 06/28/24 12:47 Abnormal Lab Findings: Abnormal Labs 06/28/24 12:47 Sodium 136 L BUN 24 H Glucose 103 H Calcium 10.3 H Assessment and Plan Assessment: This is a 68-year-old woman who present emergency department because of transient right sided weakness that started around 8:30 AM. She has uncontrolled hypertension at baseline and she has chronic tobacco use smoked for 46 years and last cigarette was 6-month ago. Likely transient ischemic attack : Had transient right hemiparesis. Etiology of stroke symptom seems due to symptomatic left ICA stenosis of more than 70% on CT angiography, uncontrolled hypertension, alcohol use and history of tobacco use and her sex (female). Significant left ICA stenosis more than 70% on CT angiography Hypertension emergency Uncontrolled hypertension Ex tobacco use Alcohol use drinks 3-4 glasses daily. Plan: The patient was given aspirin 325 once in the ED. Was also started on aspirin 325 mg daily by the ED physician. I also started the patient on Plavix 75 mg daily. Prior to this the patient was not on any antiplatelet. Patient is allergic to statin and she get muscle cramps and she refuses to be on statin she is on Zetia. She was on Lipitor that was started by the ED physician and I stopped it because of her side effects were in the past MRI of the brain is ordered, 2D echo, lipid panel is ordered Recommend permissive hypertension and control the blood pressure systolic of more than 210 and diastolic is 110. Continue neurochecks Cardiac monitoring PT OT and SUEDE CLEANER are consulted I consulted vascular surgery team for the left ICA stenosis Patient was counseled on decreasing consumption of alcohol. Patient was also counseled on better control of her blood pressure. For DVT prophylaxis I started the patient on subcu heparin 5000 units every 12 hours Will defer the rest of the medical management to primary and other specialist Plan discussed with the patient and her brother who is at bedside Thank you for the consultation. Time with Patient: Greater than 30
[2024-06-28 17:46] LABS: Appearance,Urine Cloudy (Clear); Bacteria,Urine Rare /hpf; Bilirubin,Urine Negative (Negative); Blood,Urine Negative (Negative); Color,Urine Colorless; Glucose,Urine (UA) Negative (Negative); Ketones,Urine Negative (Negative); Leukocyte Esterase,Urine Large (Negative); Mucus,Urine Rare /hpf; Nitrite,Urine Negative (Negative); PH, Urine 5.5 (5.0-8.0); Protein,Urine Negative (Negative); RBC,Urine 6 /hpf (0-5); Specific Gravity,Urine 1.032 (1.001-1.035); Squamous Epithelial Cell,Urine 8 /hpf (0-4); Urobilinogen,Urine <2.0 mg/dL (<2.0); WBC,Urine 43 /hpf (0-5)
[2024-06-28] MEDS: CLOPIDOGREL 75 MG TAB PO SCH (18:36)
[2024-06-28] MEDS ORDERED: ATORVASTATIN 80 MG TAB PO SCH (21:00)
[2024-06-29] MEDS: HEPARIN SODIUM,PORCINE 5,000 UNIT/ML 1 ML VIAL SQ SCH (04:35)
[2024-06-29] MEDS: amLODIPine 5 MG TAB PO SCH (09:03)
[2024-06-29] MEDS: ASPIRIN 325 MG TAB PO SCH (09:03)
[2024-06-29] MEDS: METOPROLOL SUCCINATE (ER) 50 MG TAB.ER.24H PO SCH (09:03)
--- NOTE | 2024-06-29 10:02 | P.CRDCN ---
History of Present Illness History of present illness: HISTORY OF PRESENT ILLNESS: This is a 68-year-old female with a past medical history significant for hypertension, hyperlipidemia, former nicotine dependence, and daily alcohol use. 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 We have been asked to see the patient in consultation for hypertensive emergency. Patient examined at the bedside. Patient presented to the hospital with a chief complaint of right- sided weakness. Patient states her symptoms have since resolved. The patient denies any chest pain or pressure. She denies any shortness of breath. Blood pressure was elevated when she presented to the hospital with a systolic greater than 200. Blood pressure this morning 186/67. DIAGNOSTICS: - EKG reveals sinus bradycardia with no signs of acute ischemia - Chest xray chronic changes. No acute process seen. - Laboratory data: WBC 8.6. Hemoglobin 14.3. Platelet count 251. Sodium 136. Potassium 4.3. BUN 24. Creatinine 1.0. Troponin negative x 1. - Current home cardiac medications include Zetia 10 mg daily and metoprolol titrate 50 mg daily. - Most recent echocardiogram obtained in November 2022 revealed ejection fraction 55 to 60% with mild MR and mild TR - Cardiac catheterization history: Patient denies REVIEW OF SYSTEMS: At the time of my exam: CONSTITUTIONAL: Denies fever or chills. HEENT: Denies blurred vision, vision changes, or eye pain. Denies hemoptysis CARDIOVASCULAR: Denies chest pain. Denies orthopnea. Denies PND. Denies palpitations RESPIRATORY: Denies shortness of breath. GASTROINTESTINAL: Denies abdominal pain. Denies nausea or vomiting. HEMATOLOGIC: Denies bleeding disorders. GENITOURINARY: Denies any blood in urine. SKIN: Denies pruitis. Denies rash. PHYSICAL EXAM: VITAL SIGNS: Reviewed. GENERAL: Well-developed in no acute distress. HEENT: Head is normocephalic. Pupils are equal, round. Sclerae anicteric. Mucous membranes of the mouth are moist. Neck supple. No JVD or thyromegaly LUNGS: Respirations even and unlabored. Lungs essentially clear to auscultation bilaterally. HEART: Regular rate and rhythm. S1 and S2 heard. ABDOMEN: Soft. Nondistended. Nontender. EXTREMITIES: Normal range of motion. No clubbing or cyanosis. Peripheral pulses intact. No lower extremity edema NEUROLOGIC: Awake and alert. Oriented x 3. ASSESSMENT: Right-sided weakness, possible TIA Hypertensive emergency, improved Hyperlipidemia with statin intolerance, on Zetia Former nicotine dependence Daily alcohol use Moderate stenosis of distal left common carotid artery 70% stenosis of left ICA per CT PLAN: Obtain 2D echo to assess cardiac structure and function Change metoprolol tartrate to metoprolol succinate 50 mg daily Begin amlodipine 5 mg twice a day Continue to monitor blood pressure Discontinue PRN antihypertensive medications as this makes it difficult to determine appropriate oral regimen Abstinence from alcohol recommended Will plan for outpatient stress testing Further recommendations pending patient course Nurse practitioner note has been reviewed by physician. Signing provider agrees with the documented findings, assessment, and plan of care documented by APPLICATIONS DEVELOPMENT ANALYST as a scribe. Past Medical History Past Medical History: Hyperlipidemia, Hypertension, Renal Disease History of Any Multi-Drug Resistant Organisms: None Reported Past Surgical History: Section, Hernia Repair Past Anesthesia/Blood Transfusion Reactions: No Reported Reaction Past Psychological History: No Psychological Hx Reported Smoking Status: Current every day smoker Past Alcohol Use History: None Reported Past Drug Use History: None Reported Medications and Allergies Home Medications Medication Instructions Recorded Confirmed Type Metoprolol Tartrate [Lopressor] 50 mg PO DAILY 12/11/22 06/28/24 History Pantoprazole [Protonix] 40 - 80 mg PO DAILY 12/11/22 06/28/24 History Cholecalciferol [Vitamin D3 (25 50 mcg PO DAILY 12/30/22 06/28/24 History Mcg = 1000 Iu)] Ezetimibe [Zetia] 10 mg PO DAILY 06/28/24 06/28/24 History Magnesium Oxide [Magox 400] 400 mg PO DAILY 06/28/24 06/28/24 History Allergies Allergy/AdvReac Type Severity Reaction Status Date / Time Penicillins Allergy Swelling Verified 06/28/24 14:18 Physical Exam Vitals: Vital Signs Temp Pulse Pulse Resp BP BP Pulse Ox 06/29/24 07:00 98.4 F 59 L 16 186/67 97 06/29/24 03:00 97.9 F 58 L 15 150/55 97 06/28/24 22:49 97.5 F L 62 16 169/70 98 06/28/24 22:10 98 F 64 17 178/77 98 06/28/24 18:38 97.7 F 62 16 181/95 99 06/28/24 17:25 64 06/28/24 17:00 98.4 F 64 18 186/83 100 06/28/24 15:00 64 16 200/92 100 06/28/24 14:05 98.2 F 62 16 212/87 100 06/28/24 14:03 60 18 222/84 99 06/28/24 13:58 57 L 18 217/85 99 06/28/24 12:22 98 F 62 18 179/96 98 Intake and Output 06/28/24 06/29/24 06/29/24 22:59 06:59 14:59 Other: Weight 86.183 kg Results 06/28/24 12:47 06/28/24 12:47 Cardiac Enzymes 06/28/24 06/28/24 Range/Units 12:47 12:47 AST 24 (14-36) U/L Troponin I <0.012 (0.000-0.034) ng/mL Coagulation 06/28/24 Range/Units 12:47 PT 10.7 (10.0-12.5) sec APTT 22.4 (22.0-30.0) sec CBC 06/28/24 Range/Units 12:47 WBC 8.6 (3.8-10.6) k/uL RBC 4.61 (3.80-5.40) m/uL Hgb 14.3 (11.4-16.0) gm/dL Hct 44.1 (34.0-46.0) % Plt Count 251 (150-450) k/uL Comprehensive Metabolic Panel 06/28/24 Range/Units 12:47 Sodium 136 L (137-145) mmol/L Potassium 4.3 (3.5-5.1) mmol/L Chloride 99 (98-107) mmol/L Carbon Dioxide 28 (22-30) mmol/L BUN 24 H (7-17) mg/dL Creatinine 1.00 (0.52-1.04) mg/dL Glucose 103 H (74-99) mg/dL Calcium 10.3 H (8.4-10.2) mg/dL AST 24 (14-36) U/L ALT 23 (4-34) U/L Alkaline Phosphatase 84 (38-126) U/L Total Protein 7.6 (6.3-8.2) g/dL Albumin 4.3 (3.5-5.0) g/dL Current Medications Generic Name Dose Route Start Last Admin Trade Name Deborah PRN Reason Stop Dose Admin Amlodipine Besylate 5 mg 06/29/24 09:00 Amlodipine 5 Mg Tab PO BID [facility] Aspirin 325 mg 06/29/24 09:00 Aspirin 325 Mg Tab PO DAILY [facility] Cholecalciferol 50 mcg 06/28/24 16:30 06/28/24 16:56 Cholecalciferol 25 Mcg (1000 Iu) Tablet PO Not Given DAILY [facility] Clopidogrel Bisulfate 75 mg 06/28/24 17:45 06/28/24 18:36 Clopidogrel 75 Mg Tab PO 75 mg DAILY [facility] Administration Ezetimibe 10 mg 06/28/24 16:30 06/28/24 16:57 Ezetimibe 10 Mg Tab PO Not Given DAILY [facility] Heparin Sodium (Porcine) 5,000 unit 06/28/24 21:00 06/29/24 04:35 Heparin Sodium,Porcine 5,000 Unit/Ml 1 Ml Vial SQ Not Given Q12HR [facility] Losartan Potassium 100 mg 06/28/24 16:30 06/28/24 16:58 Losartan 50 Mg Tab PO 100 mg DAILY [facility] Administration Magnesium Oxide 400 mg 06/28/24 16:30 06/28/24 16:58 Magnesium Oxide 400 Mg Tab PO Not Given DAILY [facility] Metoprolol Succinate 50 mg 06/29/24 09:00 Metoprolol Succinate (Er) 50 Mg Tab.Er.24h PO DAILY [facility] Pantoprazole Sodium 40 mg 06/28/24 16:30 06/28/24 16:56 Pantoprazole 40 Mg Tablet PO Not Given DAILY [facility] Intake and Output 06/28/24 06/29/24 06/29/24 22:59 06:59 14:59 Other: Weight 86.183 kg 06/28/24 12:47 06/28/24 12:47
--- NOTE | 2024-06-29 11:21 | US ---
EXAMINATION TYPE: US carotid duplex BILAT DATE OF EXAM: 06/29/2024 COMPARISON: NONE CLINICAL INDICATION: Female, 68 years old with history of right sided weakness, TIA; CTA yesterday >7 0% left side stenosis Additional History: I65.- Occlusion/stenosis of specified precerebral artery, specified laterality TECHNIQUE: Grayscale, color Doppler and spectral Doppler evaluation of the bilateral carotid systems and vertebral arteries. Indirect Doppler criteria was utilized. FINDINGS: EXAM MEASUREMENTS: RIGHT: Peak Systolic Velocity (PSV) cm/sec ----- Right CCA: 84.8 ----- Right ICA: 132 ----- Right ECA: 250 ICA/CCA ratio: 1.6 RIGHT: End Diastole cm/sec ----- Right CCA: 14.1 ----- Right ICA: 26.2 ----- Right ECA: 10.5 LEFT: Peak Systolic Velocity (PSV) cm/sec ----- Left CCA: 98.1 ----- Left ICA: 261 ----- Left ECA: 106 ICA/CCA ratio: 2.7 LEFT: End Diastole cm/sec ----- Left CCA: 8.6 ----- Left ICA: 26.2 ----- Left ECA: 14.3 VERTEBRALS (direction of flow): Right Vertebral: Antegrade Left Vertebral: Antegrade Rhythm: Normal INFORMATION SERVICES VICE PRESIDENT NOTES: intimal wall thickening, bilateral plaque. Stenotic ratio and velocities left ICA IMPRESSION: Increased velocities and ratio at the left ICA suggesting a moderate or severe left ICA stenosis. Con media relations director further CTA assessment. Criteria for Assigning % of Stenosis / Diameter reduction (Estimation based on the indirect measurements of the internal carotid artery velocities (ICA PSV). 1. Normal (no stenosis)=ICA PSV < 125 cm/s: ratio < 2.0: ICA EDV<40 cm/s. 2. Less than 50% stenosis=ICA PSV < 125 cm/s: ratio < 2.0: ICA EDV<40 cm/s. 3. 50 to 69% stenosis=ICA PSV of 125 to 230 cm/s: ration 2.0 ? 4.0: ICA EDV 40-100 cm/s. 4. Greater than 70% stenosis to near occlusion= ICA PSV > 230 cm/s: ratio > 4.0: ICA EDV > 100 cm/s. 5. Near occlusion= ICA PSV velocities may be low or undetectable: variable ratio and ICA EDV. 6. Total occlusion=unable to detect flow. [facility], , 06/29/2024 11:19 AM
[2024-06-29] MEDS ORDERED: LORazepam 2 MG/ML INJ IV ONE (11:35)
--- NOTE | 2024-06-29 12:10 | CA ---
Transthoracic Echo Report Name: Alessandra Nieves Age: 68 Gender: F : 1955 Exam Date: 06/29/2024 08:16 Exam Location: [facility] Echo Ht (in): 69 Wt (lb): 190 Ordering Physician: Rikki Davis DO Attending/Referring Phys: [id number], Ryan Delivery Nurse Debi Aragon RDCS Procedure CPT: Indications: Thrombus Cardiac Hx: HTN Technical Quality: Good Contrast 1: Total Dose (mL): Contrast 2: Total Dose (mL): MEASUREMENTS (Male / Female) Normal Values 2D ECHO LV Diastolic Diameter PLAX 4.3 cm 4.2 - 5.9 / 3.9 - 5.3 cm LV Systolic Diameter PLAX 2.8 cm IVS Diastolic Thickness 1.1 cm 0.6 - 1.0 / 0.6 - 0.9 cm LVPW Diastolic Thickness 1.1 cm 0.6 - 1.0 / 0.6 - 0.9 cm LV Relative Wall Thickness 0.5 RV Internal Dim ED PLAX 3.2 cm LVOT Diameter 1.7 cm Aortic Root Diameter 3.0 cm LA Systolic Diameter LX 4.4 cm 3.0 - 4.0 / 2.7 - 3.8 cm LV Diastolic Volume MOD BP 93.0 cm??? 67 - 155 / 56 - 104 cm??? LV Systolic Volume MOD BP 21.2 cm??? 22 - 58 / 19 - 49 cm??? LV Ejection Fraction MOD BP 77.2 % >= 55 % LV Cardiac Index MOD BP 1945.2 cm???/min???m??? LV Diastolic Volume MOD 4C 83.9 cm??? LV Systolic Volume MOD 4C 17.9 cm??? LV Ejection Fraction MOD 4C 78.7 % LV Cardiac Index MOD 4C 1790.6 cm???/min???m??? LV Diastolic Length 4C 7.6 cm LV Systolic Length 4C 5.7 cm LV Diastolic Volume MOD 2C 96.9 cm??? LV Systolic Volume MOD 2C 24.8 cm??? LV Ejection Fraction MOD 2C 74.4 % LV Cardiac Index MOD 2C 1953.6 cm???/min???m??? LV Diastolic Length 2C 8.2 cm LV Systolic Length 2C 5.5 cm DOPPLER AV Peak Velocity 131.3 cm/s AV Peak Gradient 6.9 mmHg AV Mean Velocity 87.8 cm/s AV Mean Gradient 3.5 mmHg AV Velocity Time Integral 28.5 cm MV Peak Velocity 90.8 cm/s MV Peak Gradient 3.3 mmHg MV Mean Velocity 53.6 cm/s MV Mean Gradient 1.4 mmHg MV Velocity Time Integral 19.8 cm Mitral E Point Velocity 75.6 cm/s Mitral A Point Velocity 109.0 cm/s Mitral E to A Ratio 0.7 MV Deceleration Time 335.0 ms MV E' Velocity 3.6 cm/s Mitral E to MV E' Ratio 20.8 TR Peak Velocity 248.0 cm/s TR Peak Gradient 24.6 mmHg Right Atrial Pressure 5.0 mmHg Pulmonary Artery Systolic Pressu 29.6 mmHg Right Ventricular Systolic Press 29.6 mmHg FINDINGS Left Ventricle Left ventricular ejection fraction is estimated at 65-70%. Mildly increased septal wall thickness. Mildly increased posterior wall thickness. No obvious regional wall motion abnormalities. Possible LV obstruction. Sigmoid septum. Right Ventricle Normal right ventricular size and function. Right ventricular systolic pressure within normal limits. Right Atrium Normal right atrial size. Left Atrium Moderately increased left atrial diameter. Mitral Valve Mitral annular calcification. Moderate thickening/calcification of the posterior mitral valve leaflet. No mitral stenosis. Trace mitral regurgitation. Aortic Valve Trileaflet aortic valve. No aortic stenosis. No aortic regurgitation. Aortic valve sclerosis. Tricuspid Valve Structurally normal tricuspid valve. Trace tricuspid regurgitation. Pulmonic Valve Pulmonic valve not well visualized. No pulmonic regurgitation. Pericardium Small to trace pericardial or pleural effusion. Aorta Normal size aortic root and proximal ascending aorta. CONCLUSIONS Normal LV size and systolic function. Mitral annular calcification and aortic valve sclerosis without restriction. Mild mitral and tricuspid regurgitation. Small pericardial effusion no pulmonary hypertension Previewed by: Dr. Edy Goodson MD (Electronically Signed) Final Date: 29 June 2024 12:09
--- NOTE | 2024-06-29 12:16 | P.GSCN ---
History of Present Illness Consult date: 06/29/24 Reason for Consult: Left ICA stenosis with likely stroke Requesting physician: Jeff Calloway History of present illness: Is a pleasant 68-year-old female with a past medical history including hypertension, hyperlipidemia, former nicotine dependence and daily alcohol use who had presented to the emergency department because she was unable to walk. She states that she had right lower extremity weakness and was unable to walk as well as right upper extremity weakness. Apparently patient states she does have some right lower extremity weakness for the past 15 years secondary to a fall but does not use any assistive device for walking. She states yesterday's symptoms were much worse. She was worked up for a possible stroke and had a brain CT that reported no acute findings however does report remote lacunar inf arct on the left central semiovale. Patient also had a CTA of the head and neck that reported left common carotid artery stenosis as well as left internal carotid artery stenosis. Vascular surgery was consulted for further evaluation. She continues to have right lower extremity weakness. She denies any previous history of stroke. She denies any knowledge of internal carotid artery stenosis and does not follow with any kettle operator or vascular surgeon. Currently she denies any visual changes, no difficulty with speech or swallowing. Right upper extremity weakness improved some. Denies any shortness of breath, chest pain, nausea or vomiting. On admission patient was noted to be in hypertensive urgency with blood pressures in the 200s over 80s and 90s. Review of Systems A 14 point review systems was completed all pertinent positives and negatives as stated in the HPI. Past Medical History Past Medical History: Hyperlipidemia, Hypertension, Renal Disease History of Any Multi-Drug Resistant Organisms: None Reported Past Surgical History: Section, Hernia Repair Past Anesthesia/Blood Transfusion Reactions: No Reported Reaction Past Psychological History: No Psychological Hx Reported Smoking Status: Current every day smoker Past Alcohol Use History: None Reported Past Drug Use History: None Reported Medications and Allergies Home Medications Medication Instructions Recorded Confirmed Type Metoprolol Tartrate [Lopressor] 50 mg PO DAILY 12/11/22 06/28/24 History Pantoprazole [Protonix] 40 - 80 mg PO DAILY 12/11/22 06/28/24 History Cholecalciferol [Vitamin D3 (25 50 mcg PO DAILY 12/30/22 06/28/24 History Mcg = 1000 Iu)] Ezetimibe [Zetia] 10 mg PO DAILY 06/28/24 06/28/24 History Magnesium Oxide [Magox 400] 400 mg PO DAILY 06/28/24 06/28/24 History Allergies Allergy/AdvReac Type Severity Reaction Status Date / Time Penicillins Allergy Swelling Verified 06/28/24 14:18 Surgical - Exam Vital Signs Temp Pulse Resp BP Pulse Ox 98 F 62 18 179/96 98 06/28/24 12:22 06/28/24 12:22 06/28/24 12:22 06/28/24 12:22 06/28/24 12:22 General appearance: The patient is alert, oriented, appears in no acute distress. HET: Head is normocephalic and atraumatic. Pupils are equal and reactive. Neck: Supple. No audible bruit. Heart: Regular. Lungs: Equal expansion, normal respiratory effort. Abdomen: Soft, nontender, nondistended. Extremities: Normal skin color and turgor. Neurological: Alert and oriented to person place and time. Speech is fluent, facial symmetry, and patient answers questions appropriately. Mild Right lower extremity weakness. compared to right. Results - Labs 06/30/24 05:54 06/30/24 05:54 Abnormal Lab Results - Last 24 Hours (Table) 06/28/24 06/28/24 Range/Units 12:47 17:25 Sodium 136 L (137-145) mmol/L BUN 24 H (7-17) mg/dL Glucose 103 H (74-99) mg/dL Calcium 10.3 H (8.4-10.2) mg/dL Urine Appearance Cloudy H (Clear) Ur Leukocyte Esterase Large H (Negative) Urine RBC 6 H (0-5) /hpf Urine WBC 43 H (0-5) /hpf Ur Squamous Epith Cells 8 H (0-4) /hpf Urine Bacteria Rare H (None) /hpf Urine Mucus Rare H (None) /hpf Diabetes panel 06/28/24 Range/Units 12:47 Sodium 136 L (137-145) mmol/L Potassium 4.3 (3.5-5.1) mmol/L Chloride 99 (98-107) mmol/L Carbon Dioxide 28 (22-30) mmol/L BUN 24 H (7-17) mg/dL Creatinine 1.00 (0.52-1.04) mg/dL Glucose 103 H (74-99) mg/dL Calcium 10.3 H (8.4-10.2) mg/dL AST 24 (14-36) U/L ALT 23 (4-34) U/L Alkaline Phosphatase 84 (38-126) U/L Total Protein 7.6 (6.3-8.2) g/dL Albumin 4.3 (3.5-5.0) g/dL Calcium panel 06/28/24 Range/Units 12:47 Calcium 10.3 H (8.4-10.2) mg/dL Albumin 4.3 (3.5-5.0) g/dL Pituitary panel 06/28/24 Range/Units 12:47 Sodium 136 L (137-145) mmol/L Potassium 4.3 (3.5-5.1) mmol/L Chloride 99 (98-107) mmol/L Carbon Dioxide 28 (22-30) mmol/L BUN 24 H (7-17) mg/dL Creatinine 1.00 (0.52-1.04) mg/dL Glucose 103 H (74-99) mg/dL Calcium 10.3 H (8.4-10.2) mg/dL Adrenal panel 06/28/24 Range/Units 12:47 Sodium 136 L (137-145) mmol/L Potassium 4.3 (3.5-5.1) mmol/L Chloride 99 (98-107) mmol/L Carbon Dioxide 28 (22-30) mmol/L BUN 24 H (7-17) mg/dL Creatinine 1.00 (0.52-1.04) mg/dL Glucose 103 H (74-99) mg/dL Calcium 10.3 H (8.4-10.2) mg/dL Total Bilirubin 0.4 (0.2-1.3) mg/dL AST 24 (14-36) U/L ALT 23 (4-34) U/L Alkaline Phosphatase 84 (38-126) U/L Total Protein 7.6 (6.3-8.2) g/dL Albumin 4.3 (3.5-5.0) g/dL - Imaging Comments: Brain CT reports no acute bleed or mass effect. Mild diffuse chronic ischemic white matter demyelination. Remote lacunar infarct in the left centrum semiovale CT angiogram head and neck pression reports moderate stenosis of the distal left common carotid arteries are greater than 70% stenosis of the origin left internal carotid artery. No other significant occlusive disease within the neck or intracranial. Carotid Doppler: Right ICA PSV 132, ICA/CCA ratio 1.6 left ICA PSV 261, ICA/CCA ratio 2.7 . Increased velocities and ratio at the left ICA suggesting a moderate or severe left ICA stenosis. Consider further CTA assessment. Assessment and Plan Assessment: 1. Left internal carotid artery stenosis, 70% 2. Right sided weakness, possible TIA 3. Hypertensive urgency, improving 4. Hyperlipidemia with intolerance to statins, on Zetia 5. Former smoker Plan: 1. Carotid duplex ordered and reviewed 2. Await brain MRI results 3. Agree with aspirin and Plavix continue Zetia as patient has statin intolerance 4. Await further recommendations from neurology 5. ST, OT, PT consult 6. Further recommendations forthcoming based on clinical course Thank you for this consultation, we will continue to follow. The impression and plan of care has been dictated as directed. Dr. Brown Wren performed a history and examination of this patient, discussed the same with the dictator. I agree with the dictator's note ,documented as a scribe. Any additional findings or plans will be noted. CTA personally reviewed. MRI pending. Repeat CT scan with no acute findings. Patient still with right-sided weakness. After my review of the angiogram it is difficult to discern whether there is an area of full occlusion of the ICA with reconstitution. Will plan catheter directed angiogram
--- NOTE | 2024-06-29 17:00 | P.HPIM ---
History of Present Illness H&P Date: 06/28/24 Alessandra Nieves, is a 68-year-old female who presented to [facility] emergency room with a chief complaint of right-sided weakness that started today in the morning at 8:30 in the morning. She was evaluated in the emergency room and was found to have a hypertensive emergency with a systolic blood pressure in excess of 200 she was treated with IV labetalol and IV hydralazine and was started on amlodipine and losartan and was admitted to telemetry floor. Neurology consultation and cardiology consultation were requested. On presentation to emergency room vital examination revealed a temperature of 98 pulse 57 respiration 18 blood pressure 217/85 pulse ox 99% on room air Laboratory data revealed a white blood count of 8.6 hemoglobin 14.3 platelet count 251 BUN 24 creatinine 1.0 Testing in the emergency room revealed EKG revealed sinus bradycardia CT scan of the brain without contrast revealed no acute bleed or mass effect with mild diffuse chronic ischemic white matter changes. Patient was admitted to medical floor and was started on blood pressure medication aspirin and Plavix neurology consultation and cardiology consultation was requested Past Medical History Past Medical History: Hyperlipidemia, Hypertension, Renal Disease History of Any Multi-Drug Resistant Organisms: None Reported Past Surgical History: Section, Hernia Repair Past Anesthesia/Blood Transfusion Reactions: No Reported Reaction Past Psychological History: No Psychological Hx Reported Smoking Status: Current every day smoker Past Alcohol Use History: None Reported Past Drug Use History: None Reported Medications and Allergies Home Medications Medication Instructions Recorded Confirmed Type Metoprolol Tartrate [Lopressor] 50 mg PO DAILY 12/11/22 06/28/24 History Pantoprazole [Protonix] 40 - 80 mg PO DAILY 12/11/22 06/28/24 History Cholecalciferol [Vitamin D3 (25 50 mcg PO DAILY 12/30/22 06/28/24 History Mcg = 1000 Iu)] Ezetimibe [Zetia] 10 mg PO DAILY 06/28/24 06/28/24 History Magnesium Oxide [Magox 400] 400 mg PO DAILY 06/28/24 06/28/24 History Allergies Allergy/AdvReac Type Severity Reaction Status Date / Time Penicillins Allergy Swelling Verified 06/28/24 14:18 Physical Exam Vitals: Vital Signs Temp Pulse Resp BP Pulse Ox 06/28/24 15:00 64 16 200/92 100 06/28/24 14:05 98.2 F 62 16 212/87 100 06/28/24 14:03 60 18 222/84 99 06/28/24 13:58 57 L 18 217/85 99 06/28/24 12:22 98 F 62 18 179/96 98 Intake and Output 06/28/24 06/28/24 06/28/24 06:59 14:59 22:59 Other: Weight 86.183 kg In general patient is alert and oriented x 3 in no distress HEENT head normocephalic and atraumatic Neck is supple no JVD no goiter no lymphadenopathy no carotid bruit Chest examination is clear to auscultation no crackles no wheezing Cardiac exam reveals regular heart sounds S1 and S2 no gallops no murmurs Abdomen is soft nontender no organomegaly with normal bowel sounds Extremity exam reveals no edema no cyanosis or clubbing Neurological examination at the time of examination there was no focal sensory o r motor deficits Results CBC & Chem 7: 06/28/24 12:47 06/28/24 12:47 Labs: Abnormal Lab Results - Last 24 Hours (Table) 06/28/24 Range/Units 12:47 Sodium 136 L (137-145) mmol/L BUN 24 H (7-17) mg/dL Glucose 103 H (74-99) mg/dL Calcium 10.3 H (8.4-10.2) mg/dL Assessment and Plan Plan: Acute stroke with right-sided weakness involving the right upper extremity and the right lower extremity Hypertensive emergency on presentation Underlying history of hyperlipidemia Evidence of carotid stenosis vascular surgery consultation was requested Previous history of nicotine dependence History of daily alcohol use At this time patient was admitted to telemetry floor Cardiology neurology and vascular surgery consultation requested Home medications reviewed and reordered Echocardiogram ordered Will follow closely
--- NOTE | 2024-06-29 17:02 | P.PN ---
Subjective Progress Note Date: 06/29/24 Alessandra Nieves, is a 68-year-old female who presented to [facility] emergency room with a chief complaint of right-sided weakness that started today in the morning at 8:30 in the morning. She was evaluated in the emergency room and was found to have a hypertensive emergency with a systolic blood pressure in excess of 200 she was treated with IV labetalol and IV hydralazine and was started on amlodipine and losartan and was admitted to telemetry floor. Neurology consultation and cardiology consultation were requested. On presentation to emergency room vital examination revealed a temperature of 98 pulse 57 respiration 18 blood pressure 217/85 pulse ox 99% on room air Laboratory data revealed a white blood count of 8.6 hemoglobin 14.3 platelet count 251 BUN 24 creatinine 1.0 Testing in the emergency room revealed EKG revealed sinus bradycardia CT scan of the brain without contrast revealed no acute bleed or mass effect with mild diffuse chronic ischemic white matter changes. Patient was admitted to medical floor and was started on blood pressure medic ation aspirin and Plavix neurology consultation and cardiology consultation was requested On 06/29/2024 patient was seen and examined on the medical floor she is alert and oriented x 3 in no apparent distress there is no fever or chills no headache or dizziness no chest pain no shortness of breath no cough no nausea or vomiting no abdominal pain no diarrhea she has some discomfort in the suprapubic area with evidence of urinary tract infection. Patient stated that she had some improvement in her right upper extremity and right lower extremity weakness. She was evaluated by cardiology neurology and vascular surgery Medication were reviewed blood pressure is still elevated, and her medications are being adjusted Objective - Vital Signs Vital signs: Vital Signs Temp 97.5 F L 06/29/24 14:04 Pulse 61 06/29/24 14:04 Resp 16 06/29/24 14:04 BP 150/65 06/29/24 14:04 Pulse Ox 95 06/29/24 14:04 FiO2 Intake & Output 06/28/24 06/29/24 06/29/24 18:59 06:59 18:59 Intake Total 236 Balance 236 Weight 86.183 kg 86.183 kg Intake: Oral 236 Other: Voiding Method Toilet # Voids 3 - Exam In general patient is alert and oriented x 3 in no distress HEENT head normocephalic and atraumatic Neck is supple no JVD no goiter no lymphadenopathy no carotid bruit Chest examination is clear to auscultation no crackles no wheezing Cardiac exam reveals regular heart sounds S1 and S2 no gallops no murmurs Abdomen is soft nontender no organomegaly with normal bowel sounds Extremity exam reveals no edema no cyanosis or clubbing Neurological examination at the time of examination there was no focal sensory or motor deficits - Labs CBC & Chem 7: 06/28/24 12:47 06/28/24 12:47 Labs: Abnormal Lab Results - Last 24 Hours (Table) 06/28/24 Range/Units 17:25 Urine Appearance Cloudy H (Clear) Ur Leukocyte Esterase Large H (Negative) Urine RBC 6 H (0-5) /hpf Urine WBC 43 H (0-5) /hpf Ur Squamous Epith Cells 8 H (0-4) /hpf Urine Bacteria Rare H (None) /hpf Urine Mucus Rare H (None) /hpf Assessment and Plan Plan: Acute stroke with right-sided weakness involving the right upper extremity and the right lower extremity Hypertensive emergency on presentation Underlying history of hyperlipidemia Evidence of carotid stenosis vascular surgery consultation was requested Previous history of nicotine dependence History of daily alcohol use At this time patient was admitted to telemetry floor Cardiology neurology and vascular surgery consultation requested Home medications reviewed and reordered Echocardiogram ordered Will follow closely
--- NOTE | 2024-06-29 17:04 | P.PN ---
Subjective Progress Note Date: 06/29/24 I am following up with the patient and she stated that she is worse today compared to yesterday. She stated that she is not feeling well. Objective - Vital Signs Vital signs: Vital Signs Temp 97.5 F L 06/29/24 14:04 Pulse 61 06/29/24 14:04 Resp 16 06/29/24 14:04 BP 150/65 06/29/24 14:04 Pulse Ox 95 06/29/24 14:04 FiO2 Intake & Output 06/28/24 06/29/24 06/29/24 18:59 06:59 18:59 Intake Total 236 Balance 236 Weight 86.183 kg 86.183 kg Intake: Oral 236 Other: Voiding Method Toilet # Voids 3 - Exam General: Sitting on side of bed and is not in acute distress. Neuro: Patient is awake alert oriented to self place and time. Is following simple commands. No aphasia. No facial weakness. No dysarthria Motor the strength patient has right upper lower extremity weakness and she could not tell me when it started. Sensation is normal to touch throughout. Some of the workup during this hospital visit consisted of: While in the ED the patient systolic blood pressure was in the 200 as high as 222 and diastolic in the 80s to 90s. I reviewed the lab workup next CT of the head is reported as no acute bleed or mass effect. Mild diffuse chronic ischemic white matter demyelination. Remote lacunar infarct in the left centrum semiovale. I personally reviewed the CT and I agree there is no acute or subacute stroke CT angiography of the head and neck is reported as moderate stenosis of the distal left common carotid artery are greater than 70% stenosis of the origin of the left internal carotid artery. No other significant occlusive disease within the neck or intracranially. 2D echo was reported as normal left ventricular size and systolic function. Mitral annular calcification and aortic valve sclerosis without restriction. Mild mitral and tricuspid regurgitation. Small pericardial effusion no pulmonary hypertension. Carotid duplex is reported as increased velocities and ratio of the left ICA suggestive moderate or severe left ICA stenosis. - Labs CBC & Chem 7: 06/28/24 12:47 06/28/24 12:47 Labs: Abnormal Lab Results - Last 24 Hours (Table) 06/28/24 Range/Units 17:25 Urine Appearance Cloudy H (Clear) Ur Leukocyte Esterase Large H (Negative) Urine RBC 6 H (0-5) /hpf Urine WBC 43 H (0-5) /hpf Ur Squamous Epith Cells 8 H (0-4) /hpf Urine Bacteria Rare H (None) /hpf Urine Mucus Rare H (None) /hpf Assessment and Plan Assessment: This is a 68-year-old woman who present emergency department because of transient right sided weakness that started around 8:30 AM. She has uncontrolled hypertension at baseline and she has chronic tobacco use smoked for 46 years and last cigarette was 6-month ago. Right hemiparesis and yesterday her symptoms has resolved but it seems today she had weakness of the right side and unknown last normal. Etiology of stroke symptom seems due to symptomatic left ICA stenosis of more than 70% on CT angiography. Other factors for strokes: uncontrolled hypertension, alcohol use and history of tobacco use and her sex (female). Significant left ICA stenosis more than 70% on CT angiography and is consistent with carotid duplex and moderate to severe. Hypertension emergency Uncontrolled hypertension Ex tobacco use Alcohol use drinks 3-4 glasses daily. Plan: Continue aspirin 325 mg daily as well as Plavix 75 mg daily. Prior to this the patient was not on any antiplatelet. Patient is allergic to statin and she get muscle cramps and she refuses to be on statin she is on Zetia. She was on Lipitor that was started by the ED physician and I stopped it because of her side effects were in the past MRI of the brain is ordered lipid panel are ordered I will get repeat CT head for her recurrent weakness on the right side. Recommend permissive hypertension and control the blood pressure systolic of more than 210 and diastolic is 110 for 24 hours. I gave a bolus of 500 ml normal saline Continue neurochecks Cardiac monitoring PT OT and DIRECTOR OF SUSTAINABILITY are consulted Vascular surgery team is consulted for the left ICA stenosis Patient was counseled on decreasing consumption of alcohol. Patient was also counseled on better control of her blood pressure. For DVT prophylaxis I started the patient on subcu heparin 5000 units every 12 hours Will defer the rest of the medical management to primary and other specialist I would like the patient to be transferred to 3 S. on the stroke floor. Time with Patient: Less than 30
--- NOTE | 2024-06-29 18:00 | CT ---
EXAMINATION TYPE: CT brain wo con CT DLP: 1098.8 mGycm, Automated exposure control for dose reduction was used. DATE OF EXAM: 06/29/2024 5:51 PM COMPARISON: CT brain 06/28/2024, CTA head and neck 06/28/2024. CLINICAL INDICATION:Female, 68 years old with history of right sided weakness, Right sided weakness. TECHNIQUE: Brain: Multiple axial CT images of the brain were obtained without IV contrast. . Coronal and sagitta l reformats reviewed. FINDINGS: Brain: Extra-axial spaces: No abnormal extra-axial fluid collections. Ventricular system: Within normal limits Cerebral parenchyma: Mild diffuse cerebral atrophy. Remote lacunar infarct involving the left centrum semiovale. No acute intraparenchymal hemorrhage or mass effect. The babcock-white junction is well dif ferentiated. Scattered hypoattenuating areas are seen within the periventricular white matter. Cerebellum: Unremarkable. Mass effect: No evidence of midline shift. Intracranial vasculature: Atherosclerotic calcifications of the intracranial vessels. Soft tissues: Normal. Calvarium/osseous structures: No depressed skull fracture. Benign hyperostosis frontalis noted. Paranasal sinuses and mastoid air cells: The mastoid air cells are clear. Minimal mucosal thickening of the ethmoid sinuses and left frontal sinus. Hypoplasia of the right frontal sinus. Visualized orbits: Orbital contents are intact. IMPRESSION: 1. No acute intracranial process. 2. Remote left centrum semiovale lacunar injury along with nonspecific white matter changes likely se condary to chronic microangiopathy. [facility], , 06/29/2024 5:57 PM
[2024-06-29] MEDS: SODIUM CHLORIDE 0.9% 500 ML 500 ML IV ONE (18:01)
[2024-06-29] MEDS: CIPROFLOXACIN HCL 250 MG TAB PO SCH (21:39)
[2024-06-29] MEDS: CLOPIDOGREL 75 MG TAB PO SCH (21:39)
[2024-06-30 07:14] LABS: Basophils % (A) 1 %; Eosinophils # (A) 0.5 k/uL (0-0.7); Eosinophils % (A) 7 %; HCT 43.2 % (34.0-46.0); Lymphocytes # (A) 2.6 k/uL (1.0-4.8); Lymphocytes % (A) 37 %; MCH 31.1 pg (25.0-35.0); MCHC 32.3 g/dL (31.0-37.0); MCV 96.2 fL (80.0-100.0); Mean Platelet Volume 8.7; Monocytes # (A) 0.4 k/uL (0-1.0); Monocytes % (A) 6 %; Neutrophils # (A) 3.4 k/uL (1.3-7.7); Neutrophils % (A) 48 %; Platelet Count 230 k/uL (150-450); RDW 12.7 % (11.5-15.5)
[2024-06-30 07:46] LABS: ALT 25 U/L (4-34); AST 28 U/L (14-36); African American GFR (CKD) >90 (>60 ml/min/1.73 sqM); Albumin 4.1 g/dL (3.5-5.0); Alkaline Phosphatase 69 U/L (38-126); Anion Gap 10 mmol/L; Blood Urea Nitrogen 14 mg/dL (7-17); Calcium 10.3 mg/dL (8.4-10.2); Carbon Dioxide 25 mmol/L (22-30); Chloride 102 mmol/L (98-107); Glucose 93 mg/dL (74-99); Non-African American GFR(CKD) 82 (>60 ml/min/1.73 sqM); Potassium 4.3 mmol/L (3.5-5.1); Sodium 137 mmol/L (137-145); Total Bilirubin 0.6 mg/dL (0.2-1.3); Total Protein 7.1 g/dL (6.3-8.2)
[2024-06-30] MEDS: LIDOCAINE 1% INJ 10MG/ML (20 ML MDV) SQ ONE (08:58)
[2024-06-30] MEDS: fentaNYL (PF) 50 MCG/ML 2 ML AMP IVP ONE (08:58)
[2024-06-30] MEDS: MIDAZOLAM 2 MG/2 ML VIAL IVP ONE (08:58)
[2024-06-30] MEDS: SODIUM CHLORIDE 0.9% 250 ML IV ONE (09:37)
[2024-06-30] MEDS: IOPAMIDOL-370 100ML BTL INJ ONE (09:38)
--- NOTE | 2024-06-30 10:07 | P.OP ---
Date of Procedure: 06/30/24 Description of Procedure: preoperative diagnosis: Left carotid stenosis, CVA Postoperative diagnosis: Same, left internal carotid artery occlusion Procedure: Ultrasound-guided right radial artery access Right upper extremity angiogram Ultrasound-guided right ulnar artery access Cerebral angiogram Moderate conscious sedation with personal monitoring certified RN administration and personal hemodynamic monitoring for 41 minutes Surgeon: Peytno Hunter D.O. EBL: Less than 5 cc IV fluids: See records Urine output: Not measured Drains: None Complications: None immediately apparent Condition: Stable to recovery Operative indication and findings: Patient is [68-year-old who came to the hospital with weakness of the right side and was found to have high-grade left internal carotid artery stenosis. Upon my evaluation of the CT scan did appear likely there was some area of occlusion rather than true stenosis with reconstitution of the distal internal carotid artery and a string sign into the brain. In order to fully evaluate, the decision was made to go forward with a cerebral angiogram. Risks and benefits were discussed. She seemed understood and was willing to proceed Procedure in detail: Patient was taken to the special suite and placed in supine position. The right upper extremity was prepped and draped in usual sterile fashion. A preprocedural timeout was performed, all parties were in agreement. Using the ultrasound, the radial artery was identified. The skin overlying was anesthetized with 1% lidocaine plain. The artery was patent without significant calcific disease and a permanent image was stored. Under direct visualization, the artery was accessed and Seldinger technique was used to place a 5 slender sheath. Attempts were made to pass a wire and catheter which was met with some resistance of the wire at the level of the brachial/antecubital fossa. A right upper extremity angiogram was then performed. It showed significant tortuosity of the radial artery. Attempts were made to traverse this area which were successful however the catheter did not allow for appropriate aspiration or flushing to reach the aorta appropriately. Due to this the decision was made to access the ulnar artery. Again the ultrasound was utilized and Seldinger technique was used to place the sheath. The wire and catheter advanced freely and easily to the level of the ascending aorta. An angiogram was performed. The aorta appeared normal in course and caliber. The visualized of the brachiocephalic are patent without significant disease. The proximal right subclavian does appear to have mild stenosis. The further portion of the right subclavian appear patent without significant disease. The vertebral arteries appear patent without significant disease with significant tortuosity. The right common carotid appears patent. There is difficulty in visualization of the actual bifurcation on the right, the ICA appears to traverse to the base of the skull without significant disease. On the left, the subclavian appears patent without significant disease. The common carotid appears patent, at the level of the bifurcation the external carotid is visualized. There is abrupt occlusion of the internal carotid artery at its proximal portion without any significant or obvious reconstitution. There is a potential string sign at the base of the skull however due to this appearance again overall appears that the left internal carotid artery is occluded shortly after its takeoff.. Manual pressure was held the radial sheath site. A TR band was placed in the ulnar sheath site was obtained.
--- NOTE | 2024-06-30 10:45 | P.PN ---
Progress Note - Text Progress Note Date: 06/30/24 Patient is status post cerebral angiogram with findings of left internal carotid artery occlusion. Due to occlusion vascular surgical intervention is not recommended for left ICA. Will cancel patient's transcarotid artery revascularization that was scheduled for tomorrow. Patient may have heart healthy diet. Follow-up in 3 to 4 weeks to establish at office and monitor right ICA. The impression and plan of care has been dictated as directed. Dr. Brown Wren performed a history and examination of this patient, discussed the same with the dictator. I agree with the dictator's note ,documented as a scribe. Any additional findings or plans will be noted.
[2024-06-30] MEDS: hydrALAZINE HCL 20 MG/ML 1 ML VIAL IVP PRN (10:55)
[2024-06-30] MEDS: ACETAMINOPHEN TAB 500 MG TAB PO PRN (11:25)
[2024-06-30 11:47] VITALS: RESP 20
--- NOTE | 2024-06-30 12:25 | IR ---
EXAMINATION TYPE: IR angiogram carotid cervical bilateral DATE OF EXAM: 06/30/2024 COMPARISON: Carotid ultrasound 06/29/2024, CTA head and neck 06/28/2024 CLINICAL INDICATION: Female, 68 years old with history of left carotid stenosis; TECHNIQUE: IR angiogram carotid cervical bilateral, multiple fluoroscopic images provided for procedu re. Total fluoroscopy time: 7.1 minutes Total submitted images to PACS: 7 DAP: 8.81 Gycm2 IMPRESSION: 1. No evidence for intraoperative complication. 2. Please see the operative/procedural note for further details. [facility], , 06/30/2024 12:23 PM
--- NOTE | 2024-06-30 12:49 | P.PN ---
Subjective Progress Note Date: 06/30/24 HISTORY OF PRESENT ILLNESS: This is a 68-year-old female with a past medical history significant for hy pertension, hyperlipidemia, former nicotine dependence, and daily alcohol use. Patient does not follow with a construction administrator. We have been asked to see the patient in consultation for hypertensive emergency. Patient examined at the bedside. Patient presented to the hospital with a chief complaint of right- sided weakness. Patient states her symptoms have since resolved. The patient denies any chest pain or pressure. She denies any shortness of breath. Blood pressure was elevated when she presented to the hospital with a systolic greater than 200. Blood pressure this morning 186/67. DIAGNOSTICS: - EKG reveals sinus bradycardia with no signs of acute ischemia - Chest xray chronic changes. No acute process seen. - Laboratory data: WBC 8.6. Hemoglobin 14.3. Platelet count 251. Sodium 136. Potassium 4.3. BUN 24. Creatinine 1.0. Troponin negative x 1. - Current home cardiac medications include Zetia 10 mg daily and metoprolol titrate 50 mg daily. - Most recent echocardiogram obtained in November 2022 revealed ejection fraction 55 to 60% with mild MR and mild TR - Cardiac catheterization history: Patient denies 06/30 Patient is has not been seen today as she is gone for cerebral angiogram of the left internal carotid artery with vascular surgery. Blood pressure 189/77, heart rate 61, pulse ox 90% on room air. CBC, electrolytes and renal function are within normal limits. Yesterday, amlodipine 5 mg twice daily, Toprol-XL 50 mg daily were added as well as patient is maintained on losartan 100 mg daily. Echocardiogram reveals normal LV size and systolic function. Mitral annular calcification and aortic valve sclerosis without restriction. Mild mitral and tricuspid regurgitation. Small pericardial effusion. No pulm hypertension. PHYSICAL EXAM: VITAL SIGNS: Reviewed. GENERAL: Well-developed in no acute distress. HEENT: Head is normocephalic. Pupils are equal, round. Sclerae anicteric. Neck supple. No JVD or thyromegaly LUNGS: Respirations even and unlabored. Lungs essentially clear to auscultation bilaterally. HEART: Regular rate and rhythm. S1 and S2 heard. ABDOMEN: Soft. Nondistended. Nontender. EXTREMITIES: No clubbing or cyanosis. Peripheral pulses intact. No lower extremity edema NEUROLOGIC: Awake and alert. Oriented x 3. ASSESSMENT: Right-sided weakness, possible TIA Hypertensive emergency, improved Hyperlipidemia with statin intolerance, on Zetia Former nicotine dependence Daily alcohol use Moderate stenosis of distal left common carotid artery 70% stenosis of left ICA per CT PLAN: Continue metoprolol succinate 50 mg daily, and amlodipine 5 mg twice a day Continue to monitor blood pressure Will make no medication changes today and continue to monitor. Discontinue PRN antihypertensive medications as this makes it difficult to det ermine appropriate oral regimen Abstinence from alcohol recommended Will plan for outpatient stress testing Further recommendations pending patient course Nurse practitioner note has been reviewed by physician. Signing provider agrees with the documented findings, assessment, and plan of care documented by UNION [employer] as a scribe. Objective - Vital Signs Vital signs: Vital Signs Temp 98.3 F 06/30/24 08:00 Pulse 61 06/30/24 08:00 Resp 20 06/30/24 08:00 BP 189/77 06/30/24 08:00 Pulse Ox 98 06/30/24 08:00 FiO2 Intake & Output 06/29/24 06/30/24 06/30/24 18:59 06:59 18:59 Intake Total 236 Balance 236 Intake: Oral 236 Other: Voiding Method Toilet Toilet # Voids 3 0 - Labs CBC & Chem 7: 06/30/24 05:54 06/30/24 05:54 Labs: Abnormal Lab Results - Last 24 Hours (Table) 06/30/24 Range/Units 05:54 Calcium 10.3 H (8.4-10.2) mg/dL
[2024-06-30 12:58] LABS: Glucose,Whole Blood 136 mg/dL (70-110)
--- NOTE | 2024-06-30 13:21 | CT ---
Head CT without contrast HISTORY: Code stroke. COMPARISON: 06/29/2024. TECHNIQUE: Multiple axial images are obtained from the skull base to the vertex without IV contrast. FINDINGS: The ventricles, basal cisterns and sulci convexities are within normal limits for the patient's age. There is no mass effect or shift midline structures. There is a stable remote lacunar infarct in the left centrum semiovale. There is a tiny remote lacuna r infarct in the right centrum semiovale. There is no acute intra or extra-axial hemorrhage. The posterior fossa including the brainstem, fourth ventricle and cerebellar pontine angles appear gr ossly normal. The intraorbital contents appear normal. Visualized paranasal sinuses and mastoid air cells are well aerated. The calvarium is intact. IMPRESSION: 1. No acute bleed or mass effect. 2. Stable remote lacunar infarcts in the white matter of both cerebral hemispheres as described above . [facility], , 06/30/2024 1:19 PM
[2024-06-30 13:39] LABS: Basophils # (A) 0.1 k/uL (0-0.2); Basophils % (A) 1 %; Eosinophils # (A) 0.3 k/uL (0-0.7); Eosinophils % (A) 5 %; HCT 43.3 % (34.0-46.0); Lymphocytes # (A) 2.4 k/uL (1.0-4.8); Lymphocytes % (A) 35 %; MCH 30.8 pg (25.0-35.0); MCHC 32.3 g/dL (31.0-37.0); MCV 95.3 fL (80.0-100.0); Mean Platelet Volume 8.8; Monocytes # (A) 0.3 k/uL (0-1.0); Monocytes % (A) 4 %; Neutrophils # (A) 3.7 k/uL (1.3-7.7); Neutrophils % (A) 54 %; Platelet Count 241 k/uL (150-450); RBC 4.55 m/uL (3.80-5.40); RDW 12.5 % (11.5-15.5); WBC 6.8 k/uL (3.8-10.6)
[2024-06-30 13:47] LABS: Partial Thromboplastin Time 22.9 sec (22.0-30.0); Prothrombin Time 10.9 sec (10.0-12.5)
[2024-06-30 13:58] LABS: ALT 27 U/L (4-34); AST 28 U/L (14-36); African American GFR (CKD) 66 (>60 ml/min/1.73 sqM); Albumin 4.1 g/dL (3.5-5.0); Blood Urea Nitrogen 14 mg/dL (7-17); Calcium 10.3 mg/dL (8.4-10.2); Glucose 116 mg/dL (74-99); Non-African American GFR(CKD) 57 (>60 ml/min/1.73 sqM); Potassium 3.9 mmol/L (3.5-5.1)
[2024-06-30] MEDS: SODIUM CHLORIDE 0.9% 1,000 ML IV ONE (14:13)
[2024-06-30] MEDS ORDERED: SODIUM CHLORIDE 0.9% 1,000 ML IV SCH (14:15)
--- NOTE | 2024-06-30 14:21 | P.PN ---
Progress Note - Text Progress Note Date: 06/30/24 Code stroke was called/initiated by nurse on patient approximately 1 PM. Nursing had found patient to be aphasic and right upper extremity was flaccid. She went for a CT of the brain without any acute findings, no acute bleed or mass effect. Stable remote lacunar infarcts in the white matter of both cerebral hemispheres as described. On initial evaluation patient was aphasic, basically mute. She was able to follow a couple simple commands. Right upper extremity with some minimal movement. Patient appears very restless. Patient was evaluated with the neurologist Dr. Murrieta at the bedside. During the time at the bedside patient's focal deficits were improving. She had improved sen sorimotor of the right upper extremity and was able to lift her arm. She was still able to follow simple commands but not all. She began saying simple words and talking. She was able to identify a pen and glasses and state her brother's name "Pernell", however still remained aphasic. She was not able to state her own name. Case discussed with in-house neurologist Dr. Calloway as well as the interventional neurologist. Neurology and interventional neurologist to further discuss patient, further recommendations forthcoming. The impression and plan of care has been dictated as directed. Dr.Cuello Wren performed a history and examination of this patient, discussed the same with the dictator. I agree with the dictator's note ,documented as a scribe. Any additional findings or plans will be noted.
[2024-06-30 14:35] LABS: Alkaline Phosphatase 69 U/L (38-126); Anion Gap 10 mmol/L; Carbon Dioxide 23 mmol/L (22-30); Chloride 103 mmol/L (98-107); Sodium 136 mmol/L (137-145); Total Bilirubin 0.5 mg/dL (0.2-1.3); Total Protein 7.1 g/dL (6.3-8.2)
[2024-06-30 15:57] VITALS: TEMP 97.9
--- NOTE | 2024-06-30 16:20 | P.PN ---
Subjective Progress Note Date: 06/30/24 I am following with the patient and today in the morning she had diagnostic cerebral angiogram and is recorded that she had left ICA occlusion per the vascular surgeon. Objective - Vital Signs Vital signs: Vital Signs Temp 97.9 F 06/30/24 15:44 Pulse 60 06/30/24 15:44 Resp 20 06/30/24 15:44 BP 179/68 06/30/24 15:44 Pulse Ox 99 06/30/24 15:44 FiO2 Intake & Output 06/29/24 06/30/24 06/30/24 18:59 06:59 18:59 Intake Total 236 50 Output Total 1200 Balance 236 -1150 Intake: IV 50 Oral 236 Output: Urine 1200 Other: Voiding Method Toilet Toilet # Voids 3 0 - Exam General: Lying in bed and is not in acute distress. Psych: Flat affect. Neuro: Somewhat limited. Had recent diagnostic cerebral angiogram and received sedation. Patient is drowsy but awakeable to voice. Is oriented to self place and time. Is following simple commands. Slightly slow responding to questioning. No aphasia. Pupils are 4mm and reactive to light. No facial weakness. No dysarthria Motor: Strength is right is 4+. Left is 5/5. Sensation is normal to touch throughout. Some of the workup during this hospital visit consisted of: While in the ED the patient systolic blood pressure was in the 200 as high as 222 and diastolic in the 80s to 90s. I reviewed the lab workup next CT of the head is reported as no acute bleed or mass effect. Mild diffuse chronic ischemic white matter demyelination. Remote lacunar infarct in the left centrum semiovale. I personally reviewed the CT and I agree there is no acute or subacute stroke CT angiography of the head and neck is reported as moderate stenosis of the distal left common carotid artery are greater than 70% stenosis of the origin of the left internal carotid artery. No other significant occlusive disease within the neck or intracranially. 2D echo was reported as normal left ventricular size and systolic function. Mitral annular calcification and aortic valve sclerosis without restriction. Mild mitral and tricuspid regurgitation. Small pericardial effusion no pul monary hypertension. Carotid duplex is reported as increased velocities and ratio of the left ICA schulz ggestive moderate or severe left ICA stenosis. Repeat CT of the head is reported as no acute intracranial process. - Labs CBC & Chem 7: 06/30/24 13:20 06/30/24 13:20 Labs: Abnormal Lab Results - Last 24 Hours (Table) 06/30/24 06/30/24 06/30/24 Range/Units 05:54 12:54 13:20 Sodium 136 L (137-145) mmol/L Glucose 116 H (74-99) mg/dL POC Glucose (mg/dL) 136 H (70-110) mg/dL Calcium 10.3 H 10.3 H (8.4-10.2) mg/dL Assessment and Plan Assessment: This is a 68-year-old woman who present emergency department because of transient right sided weakness that started around 8:30 AM. She has uncontrolled hypertension at baseline and she has chronic tobacco use smoked for 46 years and last cigarette was 6-month ago. Acute ischemic stroke. Has right hemiparesis. Etiology of stroke symptom seems due to symptomatic left ICA stenosis of more than 70% on CT angiography. Other factors for strokes: uncontrolled hypertension, alcohol use and history of tobacco use and her sex (female). Significant left ICA stenosis more than 70% on CT angiography and is consistent with carotid duplex and moderate to severe but today had diagnostic cerebral agiogram and revealed left ICA occlusion. Hypertension emergency Uncontrolled hypertension Ex tobacco use Alcohol use drinks 3-4 glasses daily. Plan: Continue aspirin 325 mg daily as well as Plavix 75 mg daily. Patient was loaded with Plavix yesterday by the vascular surgery team. Prior to this the patient was not on any antiplatelet. Patient is allergic to statin and she get muscle cramps and she refuses to be on statin she is on Zetia. MRI of the brain and lipid panel are pending. Continue neurochecks Cardiac monitoring PT OT and CANE SPLICER are consulted Vascular surgery team is on board and stated no intervention since has left ICA occlusion. Patient was counseled on decreasing consumption of alcohol. Patient was also counseled on better control of her blood pressure. For DVT prophylaxis On subcu heparin 5000 units every 12 hours Will defer the rest of the medical management to primary and other specialist ADDENDUM: Shortly after examining him it seems the patient had right hemiplegia, severe aphasia, mutism. Result a repeat CT of the head stat was done. And it reveals no acute bleed or mass effect. Stable remote lacunar infarct in the white matter of both cerebral hemisphere. Dr. Hunter spoke with Dr. Allen (Neuro-interventionalist) and it was agreed the patient to be transferred to [facility] for escalation of care for possible left ICA intervention. I personally spoke with Dr. Allen and he recommended a systolic blood pressure to be 160-220. I gave the patient a bolus of 1 L normal saline and started the patient on 100 cc an hour. Patient condition improved and she refused initially but then later was notified by the nurse that she was in acceptance. I also updated the patient's brother was at bedside about plan of care. Plan was also updated to the vascular surgery team. Total time care was 45-minutes. Time with Patient: Greater than 30
[2024-06-30] MEDS: TICAGRELOR 90 MG TAB PO STA (17:02)
--- NOTE | 2024-06-30 17:02 | P.PN ---
Subjective Progress Note Date: 06/30/24 Alessandra Nieves, is a 68-year-old female who presented to [facility] emergency room with a chief complaint of right-sided weakness that started today in the morning at 8:30 in the morning. She was evaluated in the emergency room and was found to have a hypertensive emergency with a systolic blood pressure in excess of 200 she was treated with IV labetalol and IV hydralazine and was started on amlodipine and losartan and was admitted to telemetry floor. Neurology consultation and cardiology consultation were requested. On presentation to emergency room vital examination revealed a temperature of 98 pulse 57 respiration 18 blood pressure 217/85 pulse ox 99% on room air Laboratory data revealed a white blood count of 8.6 hemoglobin 14.3 platelet count 251 BUN 24 creatinine 1.0 Testing in the emergency room revealed EKG revealed sinus bradycardia CT scan of the brain without contrast revealed no acute bleed or mass effect with mild diffuse chronic ischemic white matter changes. Patient was admitted to medical floor and was started on blood pressure medic ation aspirin and Plavix neurology consultation and cardiology consultation was requested On 06/29/2024 patient was seen and examined on the medical floor she is alert and oriented x 3 in no apparent distress there is no fever or chills no headache or dizziness no chest pain no shortness of breath no cough no nausea or vomiting no abdominal pain no diarrhea she has some discomfort in the suprapubic area with evidence of urinary tract infection. Patient stated that she had some improvement in her right upper extremity and right lower extremity weakness. She was evaluated by cardiology neurology and vascular surgery Medication were reviewed blood pressure is still elevated, and her medications are being adjusted On 06/30/2024 patient was seen and examined on the medical floor she is alert and oriented x 3 in no apparent distress there is no fever or chills no headache or dizziness no chest pain no shortness of breath no cough no nausea or vomiting no abdominal pain no diarrhea no urinary symptoms. Patient is still complaining of numbness and weakness in the right upper extremity and right lower extremity She is scheduled for MRI of the brain today Input from cardiology and neurology reviewed Objective - Vital Signs Vital signs: Vital Signs Temp 97.9 F 06/30/24 15:44 Pulse 61 06/30/24 16:14 Resp 20 06/30/24 16:14 BP 169/66 06/30/24 16:14 Pulse Ox 98 06/30/24 16:14 FiO2 Intake & Output 06/29/24 06/30/24 06/30/24 18:59 06:59 18:59 Intake Total 236 50 Output Total 1200 Balance 236 -1150 Intake: IV 50 Oral 236 Output: Urine 1200 Other: Voiding Method Toilet Toilet # Voids 3 0 - Exam In general patient is alert and oriented x 3 in no distress HEENT head normocephalic and atraumatic Neck is supple no JVD no goiter no lymphadenopathy no carotid bruit Chest examination is clear to auscultation no crackles no wheezing Cardiac exam reveals regular heart sounds S1 and S2 no gallops no murmurs Abdomen is soft nontender no organomegaly with normal bowel sounds Extremity exam reveals no edema no cyanosis or clubbing Neurological examination at the time of examination there was no focal sensory or motor deficits - Labs CBC & Chem 7: 06/30/24 13:20 06/30/24 13:20 Labs: Abnormal Lab Results - Last 24 Hours (Table) 06/30/24 06/30/24 06/30/24 Range/Units 05:54 12:54 13:20 Sodium 136 L (137-145) mmol/L Glucose 116 H (74-99) mg/dL POC Glucose (mg/dL) 136 H (70-110) mg/dL Calcium 10.3 H 10.3 H (8.4-10.2) mg/dL Assessment and Plan Plan: Acute stroke with right-sided weakness involving the right upper extremity and the right lower extremity Hypertensive emergency on presentation Underlying history of hyperlipidemia Evidence of carotid stenosis vascular surgery consultation was requested Previous history of nicotine dependence History of daily alcohol use At this time patient was admitted to telemetry floor Cardiology neurology and vascular surgery consultation requested Home medications reviewed and reordered Echocardiogram ordered Will follow closely
[2024-06-30 17:16] VITALS: BP 183/72; PULSE 67
[2024-07-01 04:06] LABS: LDL Cholesterol,Calculated 132.6 mg/dL (0.0-131.0)
== END 2024-06-30 17:37 | disposition short-term general hospital (02) | DRG 65 ==
LOC: EC 12:14 → 6NMEDSUR 15:31 → 3SCARD 06-29 20:18 → OBSVTOIN 06-30 09:39
PROVIDERS: ADMIT Internal Medicine; ATTEND Internal Medicine
PROC: B31H1ZZ Fluoroscopy of Right Upper Extremity Arteries using Low Osmolar Contrast (ICD-10-PCS; 2024-06-30)
PROC: B3171ZZ Fluoroscopy of Left Internal Carotid Artery using Low Osmolar Contrast (ICD-10-PCS; principal; 2024-06-30 15:20)
DX: I63.81 Other cerebral infarction due to occlusion or stenosis of small artery (principal); G81.91 Hemiplegia, unspecified affecting right dominant side; I16.1 Hypertensive emergency; I08.1 Rheumatic disorders of both mitral and tricuspid valves; I65.22 Occlusion and stenosis of left carotid artery; N39.0 Urinary tract infection, site not specified; I10 Essential (primary) hypertension; E78.00 Pure hypercholesterolemia, unspecified; R29.700 NIHSS score 0; R47.01 Aphasia; Z79.899 Other long term (current) drug therapy; Z86.73 Personal history of transient ischemic attack (TIA), and cerebral infarction without residual deficits; Z87.891 Personal history of nicotine dependence; Z87.19 Personal history of other diseases of the digestive system
CPT/HCPCS: 36222; 36415; 70450; 70496; 70498; 71046; 80053; 80061; 81001; 82550; 84484; 85025; 85610; 85730; 86850; 86900; 86901; 93005; 93306; 93880; 96361; 96374; 96375; 99291

== ENCOUNTER → 2024-12-29 | Outpatient (CLI) | payer MEDICARE ==
--- NOTE | 2024-12-29 13:57 | CTL ---
EXAMINATION TYPE: CT Low Dose Lung DATE OF EXAM ORDERED: 12/29/2024 COMPARISON: 11/23/2023 CLINICAL INDICATION: Female, 69 years old with history of Z87.891 hx tobacco use; PHH, former smoker 1 PPD x 40years. quit x1 year ago., Lung cancer screening, History of Smoking/tobacco use. TECHNIQUE: Low dose computed tomography scan was performed through the chest at 1 mm thick sections a nd reconstructed images in multiple planes at 1 mm and [address] DLP: [address] CTDI: 2.45 mGy Automated exposure control for dose reduction was used. CT DIAGNOSTIC QUALITY: Satisfactory Findings: There are a few scattered micronodules. There is no lung consolidation or abnormal interstitial density. There is no pleural effusion or pneumothorax. The great vessels and heart are normal in size. There is no mediastinal, hilar or axillary adenopathy. Limited scanning through the upper abdomen reveals a large hiatal hernia.. There are no focal osseous lesions. IMPRESSION: 1. Lung RADS category 2 benign. Continue routine screening at yearly intervals. 2. No acute cardiopulmonary disease. 3. Stable large hiatal hernia. [facility], , 12/29/2024 1:54 PM
--- NOTE | 2024-12-30 13:09 | MM ---
Reason for Exam: Screening (asymptomatic). Last mammogram was performed 1 year(s) and 1 month(s) ago. Patient History: Menarche at age 11. First Full-Term at age 25. Postmenopausal. Patient has history of breast feeding. Risk Values: Maddison 5 year model risk: 1.9%. NCI Lifetime model risk: 5.6%. Prior Study Comparison: 05/28/2022 Left MG 3D diag mammo w/cad LT, [facility]. 11/21/2022 Bilateral MG 3D screening mammo w/cad, [facility]. 11/23/2023 Bilateral MG 3D screening mammo w/cad, [facility]. Tissue Density: The breasts are almost entirely fatty. Findings: Analyzed By CAD. Chronic nodularity on the left. There is no suspicious group of microcalcifications or new suspicious mass in either breast. Overall Assessment: Benign, BI-RAD 2 Management: Screening Mammogram of both breasts in 1 year. Patient should continue monthly self-breast exams. A clinical breast exam by your physician is recommended on an annual basis. This exam should not preclude additional follow-up of suspicious palpable abnormalities. Note on Maddison scores and lifetime risk: 1. A Maddison score greater than 3% is considered moderate risk. If this is the case, consider specialist referral to assess eligibility for a risk reducing agent. 2. If overall lifetime risk for the development of breast cancer is 20% or higher, the patient may qualify for future screening with alternating mammogram and breast MRI. [facility], , 12/30/2024 1:06 PM. Electronically signed and approved by: More Franklin M.D. Radiologist
== END | disposition home or self-care (01) ==
LOC: RADMAMWWP 12:51
PROVIDERS: ATTEND Family Medicine
DX: Z12.31 Encounter for screening mammogram for malignant neoplasm of breast (principal); Z12.2 Encounter for screening for malignant neoplasm of respiratory organs; K44.9 Diaphragmatic hernia without obstruction or gangrene; R92.313 Mammographic fatty tissue density, bilateral breasts; Z87.891 Personal history of nicotine dependence; Z78.0 Asymptomatic menopausal state
CPT/HCPCS: 71271; 77063; 77067